=== PATIENT | female | born 1980 | race American Indian/Alaskan Native ===

== ENCOUNTER 2016-07-26 16:17 | Emergency (ER) | payer MEDICAID ==
[2016-07-26 16:38] VITALS: BP 135/82
[2016-07-26 17:03] LABS: Basophils % (Auto) 0.5 % (0.0-1.8); Eosinophils % (Auto) 0.2 % (0.0-4.3); Hematocrit 41.4 % (30.3-42.9); Hemoglobin 13.2 gm/dl (10.1-14.3); Mean Corpuscular HGB Conc 32 % (30-34); Mean Corpuscular Hemoglobin 30 pg (28-32); Mean Corpuscular Volume 95 fl (79-97); Platelet Count 135 K/mm3 (140-440); Red Blood Count 4.37 M/mm3 (3.65-5.03); Red Cell Distribution Width 14.4 % (13.2-15.2); White Blood Count 11.9 K/mm3 (4.5-11.0)
[2016-07-26 17:13] LABS: Bacteria,Urine 1+ /HPF (Negative); Bilirubin,Urine NEG (Negative); Blood,Urine LG (Negative); Ketones,Urine NEG (Negative); Leukocyte Esterase,Urine TR (Negative); Mucus,Urine FEW /HPF; Nitrite,Urine NEG (Negative); Protein,Urine <15 mg/dL mg/dL (Negative); Urobilinogen,Urine < 2.0 mg/dL (<2.0)
[2016-07-26 17:20] LABS: Alanine Aminotransferase 27 units/L (7-56); Albumin 3.8 g/dL (3.9-5); Albumin/Globulin Ratio 0.9 %; Alkaline Phosphatase 113 units/L (35-129); Anion Gap 20 mmol/L; Bilirubin,Total 0.6 mg/dL (0.1-1.2); Blood Urea Nitrogen 4 mg/dL (7-17); Calcium 8.6 mg/dL (8.4-10.2); Carbon Dioxide 23 mmol/L (22-30); Glucose 93 mg/dL (65-100); Lipase 24 units/L (13-60); Potassium 4.2 mmol/L (3.6-5.0); Sodium 131 mmol/L (137-145); Total Protein 8.2 g/dL (6.3-8.2)
--- NOTE | 2016-07-29 15:34 | ED Elopement Review ---
ED Pt Elopement review - Results review Lab results: Laboratory Tests 07/26/16 07/26/16 07/26/16 16:50 16:50 16:54 WBC 11.9 H RBC 4.37 Hgb 13.2 Hct 41.4 MCV 95 MCH 30 MCHC 32 RDW 14.4 Plt Count 135 L Lymph % (Auto) 11.4 L Gregg % (Auto) 8.6 H Eos % (Auto) 0.2 Baso % (Auto) 0.5 Lymph # 1.4 Gregg # 1.0 H Eos # 0.0 Baso # 0.1 Seg Neutrophils % 79.3 H Seg Neutrophils # 9.5 H Sodium 131 L Potassium 4.2 Chloride 92.0 L Carbon Dioxide 23 Anion Gap 20 BUN 4 L Creatinine 0.8 Estimated GFR > 60 BUN/Creatinine Ratio 5.00 Glucose 93 Calcium 8.6 Total Bilirubin 0.6 AST 38 ALT 27 Alkaline Phosphatase 113 Total Protein 8.2 Albumin 3.8 L Albumin/Globulin Ratio 0.9 Lipase 24 Urine Color Yellow Urine Turbidity Clear Urine pH 6.0 Ur Specific [place] 1.005 Urine Protein <15 mg/dl Urine Glucose (UA) Neg Urine Ketones Neg Urine Blood Lg Urine Nitrite Neg Urine Bilirubin Neg Urine Urobilinogen < 2.0 Ur Leukocyte Esterase Tr Urine WBC (Auto) 3.0 Urine RBC (Auto) 2.0 U Epithel Cells (Auto) 1.0 Urine Bacteria (Auto) 1+ Urine Mucus Few - Call Back decision Pt Call Back Decision: No action required
== END 2016-07-27 00:15 | disposition left against medical advice (07) ==
LOC: ED 16:17
DX: R51 Headache (principal); G43.909 Migraine, unspecified, not intractable, without status migrainosus; Z53.21 Procedure and treatment not carried out due to patient leaving prior to being seen by health care provider
CPT/HCPCS: 36415; 80053; 81001; 83690; 85025

== ENCOUNTER 2017-11-27 23:45 | Outpatient (CLI) | payer MEDICAID ==
[2017-11-27 23:58] VITALS: BP 105/59
[2017-11-28] MEDS ORDERED: LACTATED RINGERS 500 ML IV ONE (00:11)
[2017-11-28] MEDS ORDERED: LACTATED RINGERS 1,000 ML IV ONE (00:25)
[2017-11-28 00:50] LABS: Hematocrit 34.4 % (30.3-42.9); Hemoglobin 11.4 gm/dl (10.1-14.3); Mean Corpuscular HGB Conc 33 % (30-34); Mean Corpuscular Hemoglobin 31 pg (28-32); Mean Corpuscular Volume 94 fl (79-97); Platelet Count 142 K/mm3 (140-440); Red Blood Count 3.65 M/mm3 (3.65-5.03); Red Cell Distribution Width 14.1 % (13.2-15.2)
[2017-11-28 01:10] LABS: Alanine Aminotransferase 23 units/L (7-56); BUN/Creatinine Ratio 6; Blood Urea Nitrogen 3 mg/dL (7-17); Calcium 8.2 mg/dL (8.4-10.2); Hemolysis Index 14
[2017-11-28] MEDS ORDERED: STADOL IV ONE (01:15)
[2017-11-28] MEDS ORDERED: BRETHINE SUB-Q ONE (01:15)
== END 2017-11-28 04:03 | disposition home or self-care (01) ==
LOC: TRG 23:45 → LD 23:46 → TRG 11-28 04:03
PROVIDERS: ATTEND Obstetrics & Gynecology
DX: O62.9 Abnormality of forces of labor, unspecified (principal); O99.332 Smoking (tobacco) complicating pregnancy, second trimester; F17.210 Nicotine dependence, cigarettes, uncomplicated; Z3A.27 27 weeks gestation of pregnancy
CPT/HCPCS: 36415; 59025; 80053; 85027; 96360; 96372; 96374; J0595; J3105; J7120

== ENCOUNTER 2017-12-29 17:02 | Inpatient (IN) | payer MEDICAID ==
[2017-12-29] MEDS ORDERED: CELESTONE SOLUSPAN IM SCH (18:00)
[2017-12-29 19:22] LABS: Amphetamine Screen,Urine PRESUMPTIVE NEGATIVE; Benzodiazepines Screen,Urine PRESUMPTIVE NEGATIVE; Cannabinoid Screen,Urine PRESUMPTIVE NEGATIVE; Cocaine Screen,Urine PRESUMPTIVE NEGATIVE; Opiate Screen,Urine PRESUMPTIVE NEGATIVE
[2017-12-29 19:30] LABS: Hematocrit 33.8 % (30.3-42.9); Hemoglobin 11.3 gm/dl (10.1-14.3); Mean Corpuscular HGB Conc 34 % (30-34); Mean Corpuscular Hemoglobin 32 pg (28-32); Mean Corpuscular Volume 96 fl (79-97); Platelet Count 118 K/mm3 (140-440); Red Blood Count 3.51 M/mm3 (3.65-5.03); Red Cell Distribution Width 14.9 % (13.2-15.2)
[2017-12-29 19:49] LABS: Methadone Screen,Urine PRESUMPTIVE POSITIVE
--- NOTE | 2017-12-29 19:54 | Ultrasound Report ---
FINAL REPORT EXAM: US OB > = 14 WEEKS FETUS HISTORY: SEVER ABDOMINAL PAIN TECHNIQUE: Standard full obstetrical ultrasound PRIORS: None. FINDINGS: LMP: 05/18/2017 clinical Age: 32 W 1 D US Age (average) = 30 W 3 D EFW (BPD,HC,AC,FL) = 1499 g +/-222 g (3 lbs 5 oz. +/-8 oz.) LMP EDC 02/22/2018 US EDC 03/06/2018 CI 86.3 (Range 74 To 83) HC/AC 1.12 (range 0.96 to 1.17) FL/BPD 77.3 (range 71.4 to 87.4) FL/HC 21.6 (range 16.9 to 23.5) FL/AC 24.3 (range 20 to 24.0) BPD 7.7 cm corresponding to estimated age 31 weeks 1 day HC 27.8 cm corresponding to estimated age 30 weeks 3 days AC 24.8 cm corresponding to estimated age 29 weeks 0 days FL 6.0 cm corresponding to estimated age 31 weeks 2 days Presentation: Cephalic Activity: Monitored Placental location: Left lateral aspect Placental grade: 1 Cardiac motion: 129 BPM using M-mode doppler Heart (4 CH) : Present Umbilical cord: 3 vessel Heart (4 CH) : Present Umbilical cord: 3 vessel Bladder: Present Kidneys: Present stomach: Present Diaphragm: Not well seen Spine: Present brain and skull: Present with normal anatomy although the DOS cisterna magna and cerebellum are not optimally seen femurs: Present tibia/fibula: Present humerus: Present radius/ulna: Present Cord Insertion: Present Amniotic Fluid Volume: Adequate FRANCIS 8.1 cm Cervical Length: 2.8 cm IMPRESSION: Single intrauterine viable with an approximate age of 30 weeks 3 days. neuro anatomy is not optimally visualized.
[2017-12-29] MEDS ORDERED: PROTONIX IV SCH (22:03)
[2017-12-29] MEDS ORDERED: ZOFRAN IV ONE (22:03)
[2017-12-29] MEDS ORDERED: PROTONIX IV ONE (22:24)
[2017-12-29] MEDS ORDERED: LACTATED RINGERS 1,000 ML IV SCH (23:00)
[2017-12-29 23:15] LABS: Bacteria,Urine 1+ /HPF (Negative); Bilirubin,Urine NEG (Negative); Blood,Urine NEG (Negative); Color,Urine Yellow (Yellow); Mucus,Urine FEW /HPF; Protein,Urine <15 mg/dL mg/dL (Negative); WBC,Urine < 1.0 /HPF (0.0-6.0)
[2017-12-29 23:23] LABS: Amphetamine Screen,Urine PRESUMPTIVE NEGATIVE; Benzodiazepines Screen,Urine PRESUMPTIVE NEGATIVE; Cannabinoid Screen,Urine PRESUMPTIVE NEGATIVE; Cocaine Screen,Urine PRESUMPTIVE NEGATIVE; Opiate Screen,Urine PRESUMPTIVE NEGATIVE
--- NOTE | 2017-12-29 23:31 | History and Physical Report ---
History of Present Illness Date of examination: 12/29/17 Date of admission: 12/29/17 17:03 Chief complaint: LUQ pain History of present illness: This is a 37 year-old female (7 PTD) who presents with LUQ pain that started this am and became progressively worse. She has not received any care in here in [place], states she moved here from [facility] where she was given and KIRSTIN 02/25/2018( no records available). She had nausea and vomiting x1 this am also c/o post void suprapubic pain. On arrival by EMS she original complained of contractions and was found to be 3cm dilated. At that point she was given Celestone. During the course of evaluation her pain complaints. She has a history of drug use. She is receiving methadone treatment. She only took hald the dose this am d/t nausea/vomiting. Past History Past Medical History: asthma Past Surgical History: appendectomy, cholecystectomy, D&C Social history: prescription drug abuse - Obstetrical History Expected Date of Delivery: 03/06/18 Actual Gestation: 30 Week(s) 4 Day(s) : 14 Para: 10 Hx # Term Pregnancies: 3 Number of Pregnancies: 7 Spontaneous Abortions: 1 Number of Living Children: 10 Medications and Allergies Allergies Allergy/AdvReac Type Severity Reaction Status Date / Time shellfish derived Allergy Itching Verified 12/29/17 21:16 Home Medications Medication Instructions Recorded Confirmed Last Taken Type Doxycycline [Vibramycin CAP] 100 mg PO Q12HR #14 capsule 02/13/15 Unknown Rx Ibuprofen [Motrin] 800 mg PO Q8HR PRN #30 tablet 02/13/15 Unknown Rx Methadone [Dolophine] 80 mg PO DAILY 02/13/15 02/13/15 Unknown History Methylergonovine [Methergine] 0.2 mg PO Q8HR #6 tablet 02/13/15 Unknown Rx Active Meds: Active Medications Betamethasone Acet/Betameth SodPhos (Celestone Soluspan) 12 mg IM Q24HR ZEKE Stop: 12/30/17 10:01 Last Admin: 12/29/17 21:00 Dose: 12 mg Lactated Ringer's (Lactated Ringers) 1,000 mls @ 125 mls/hr IV DIRECT ZEKE Last Admin: 12/29/17 22:35 Dose: 125 mls/hr - Vital Signs Vital signs: Vital Signs Pulse BP 99 H 113/70 12/29/17 17:15 12/29/17 17:15 Temp Pulse Resp BP Pulse Ox 97.3 F L 83 18 133/76 97 12/29/17 19:50 12/29/17 23:25 12/29/17 19:50 12/29/17 22:05 12/29/17 23:25 - Physical Exam Breasts: Positive: deferred Lungs: Positive: Clear to auscultation, Normal air movement Abdomen: Positive: soft, other (She specifically placed my hand on her LUQ to indicate the place where she's having pain ). Negative: distention Extremities: Positive: normal Results Result Diagrams: 12/29/17 19:11 Abnormal lab results 12/29/17 Range/Units 19:11 RBC 3.51 L (3.65-5.03) M/mm3 Plt Count 118 L (140-440) K/mm3 All other labs normal. Ultrasound: report reviewed Assessment and Plan No evidence of chorioamnionitis. She is now sleeping in bed since she received Pantoprazole, Zofran and took her remaining dose of Methadone. She will continue observation - Patient Problems (1) 30 weeks gestation of Current Visit: Yes Status: Acute (2) LUQ abdominal pain Current Visit: Yes Status: Acute
[2017-12-29 23:37] LABS: Methadone Screen,Urine PRESUMPTIVE POSITIVE
--- NOTE | 2017-12-30 00:28 | Progress Note ---
Assessment and Plan - Patient Problems (1) 30 weeks gestation of Current Visit: Yes Status: Acute (2) LUQ abdominal pain Current Visit: Yes Status: Acute (3) Methadone maintenance treatment affecting in third trimester Current Visit: Yes Status: Acute (4) No care in current in third trimester Current Visit: Yes Status: Acute Subjective - Subjective Date of service: 12/30/17 Interval history: This is a 37 year-old female (7 PTD) who presents with LUQ pain that started this am and became progressively worse. She has not received any care in here in [place], [facility] she moved here from [facility] where she was given and KIRSTIN 02/25/2018( no records available). She had nausea and vomiting x1 this am also c/o post void suprapubic pain. On arrival by EMS she original complained of contractions and was found to be 3cm dilated. At that point she was given Celestone. During the course of evaluation her pain complaints. She has a history of drug use. She is receiving methadone treatment. She only took hald the dose this am d/t nausea/vomiting. Objective - Vital Signs Vital Signs: Vital Signs - 12hr 12/29/17 12/29/17 12/29/17 17:15 19:50 19:57 Temperature 97.3 F L Pulse Rate 99 H 86 101 H Respiratory 18 Rate Blood Pressure 113/70 Blood Pressure 120/74 [Right] O2 Sat by Pulse 98 Oximetry 12/29/17 12/29/17 12/29/17 20:02 20:06 20:07 Temperature Pulse Rate 87 101 H 95 H Respiratory Rate Blood Pressure Blood Pressure [Right] O2 Sat by Pulse 98 75 L 97 Oximetry 12/29/17 12/29/17 12/29/17 20:12 20:17 20:22 Temperature Pulse Rate 103 H 107 H 101 H Respiratory Rate Blood Pressure Blood Pressure [Right] O2 Sat by Pulse 96 98 99 Oximetry 12/29/17 12/29/17 12/29/17 20:27 20:32 20:37 Temperature Pulse Rate 80 86 87 Respiratory Rate Blood Pressure Blood Pressure [Right] O2 Sat by Pulse 97 96 97 Oximetry 12/29/17 12/29/17 12/29/17 20:42 20:44 20:47 Temperature Pulse Rate 88 98 H 71 Respiratory Rate Blood Pressure Blood Pressure [Right] O2 Sat by Pulse 96 93 98 Oximetry 12/29/17 12/29/17 12/29/17 20:52 20:57 20:58 Temperature Pulse Rate 91 H 90 90 Respiratory Rate Blood Pressure Blood Pressure [Right] O2 Sat by Pulse 98 99 94 Oximetry 12/29/17 12/29/17 12/29/17 21:05 21:10 21:15 Temperature Pulse Rate 94 H 84 116 H Respiratory Rate Blood Pressure Blood Pressure [Right] O2 Sat by Pulse 97 98 96 Oximetry 12/29/17 12/29/17 12/29/17 21:20 21:55 22:00 Temperature Pulse Rate 90 104 H 100 H Respiratory Rate Blood Pressure Blood Pressure [Right] O2 Sat by Pulse 98 99 96 Oximetry 12/29/17 12/29/17 12/29/17 22:05 22:10 22:15 Temperature Pulse Rate 103 H 104 H 114 H Respiratory Rate Blood Pressure 133/76 Blood Pressure [Right] O2 Sat by Pulse 100 98 98 Oximetry 12/29/17 12/29/17 12/29/17 22:20 22:25 22:30 Temperature Pulse Rate 99 H 91 H 95 H Respiratory Rate Blood Pressure Blood Pressure [Right] O2 Sat by Pulse 97 96 98 Oximetry 12/29/17 12/29/17 12/29/17 22:35 22:40 22:45 Temperature Pulse Rate 93 H 102 H 104 H Respiratory Rate Blood Pressure Blood Pressure [Right] O2 Sat by Pulse 98 99 96 Oximetry 12/29/17 12/29/17 12/29/17 22:46 22:50 22:55 Temperature Pulse Rate 91 H 78 84 Respiratory Rate Blood Pressure Blood Pressure [Right] O2 Sat by Pulse 88 96 96 Oximetry 12/29/17 12/29/17 12/29/17 23:00 23:05 23:10 Temperature Pulse Rate 84 80 84 Respiratory Rate Blood Pressure Blood Pressure [Right] O2 Sat by Pulse 96 96 96 Oximetry 12/29/17 12/29/17 12/29/17 23:15 23:17 23:20 Temperature Pulse Rate 84 46 L 78 Respiratory Rate Blood Pressure Blood Pressure [Right] O2 Sat by Pulse 97 81 L 98 Oximetry 12/29/17 12/29/17 12/29/17 23:25 23:30 23:35 Temperature Pulse Rate 83 74 88 Respiratory Rate Blood Pressure Blood Pressure [Right] O2 Sat by Pulse 97 96 97 Oximetry 12/29/17 12/29/17 12/29/17 23:40 23:45 23:50 Temperature Pulse Rate 82 84 80 Respiratory Rate Blood Pressure Blood Pressure [Right] O2 Sat by Pulse 97 96 96 Oximetry 12/29/17 12/30/17 12/30/17 23:55 00:00 00:05 Temperature Pulse Rate 75 87 84 Respiratory Rate Blood Pressure Blood Pressure [Right] O2 Sat by Pulse 96 97 97 Oximetry 12/30/17 12/30/17 12/30/17 00:06 00:10 00:15 Temperature Pulse Rate 78 88 83 Respiratory Rate Blood Pressure Blood Pressure [Right] O2 Sat by Pulse 79 L 98 95 Oximetry 12/30/17 12/30/17 12/30/17 00:20 00:25 00:30 Temperature Pulse Rate 85 89 81 Respiratory Rate Blood Pressure Blood Pressure [Right] O2 Sat by Pulse 96 95 95 Oximetry - Labs Labs: Abnormal Labs 12/29/17 19:11 RBC 3.51 L Plt Count 118 L Laboratory Results - last 24 hr 12/29/17 12/29/17 12/29/17 19:09 19:11 19:11 WBC 8.4 RBC 3.51 L Hgb 11.3 Hct 33.8 MCV 96 MCH 32 MCHC 34 RDW 14.9 Plt Count 118 L Sickle Cell Screen Negative Urine Color Urine Turbidity Urine pH Ur Specific [place] Urine Protein Urine Glucose (UA) Urine Ketones Urine Blood Urine Nitrite Urine Bilirubin Urine Urobilinogen Ur Leukocyte Esterase Urine WBC (Auto) Urine RBC (Auto) U Epithel Cells (Auto) Urine Bacteria (Auto) Urine Mucus Urine Opiates Screen Presumptive negative Urine Methadone Screen Presumptive positive Ur Barbiturates Screen Presumptive negative Ur Phencyclidine Scrn Presumptive negative Ur Amphetamines Screen Presumptive negative U Benzodiazepines Scrn Presumptive negative Urine Cocaine Screen Presumptive negative U Marijuana (THC) Screen Presumptive negative Drugs of Abuse Note Disclamer Hep Bs Antigen Hepatitis C Antibody HIV 1&2 Antibody Rapid Non react HIV P24 Antigen Non react Rubella IgG Antibody Immune 12/29/17 12/29/17 12/29/17 19:16 19:16 22:40 WBC RBC Hgb Hct MCV MCH MCHC RDW Plt Count Sickle Cell Screen Urine Color Urine Turbidity Urine pH Ur Specific [place] Urine Protein Urine Glucose (UA) Urine Ketones Urine Blood Urine Nitrite Urine Bilirubin Urine Urobilinogen Ur Leukocyte Esterase Urine WBC (Auto) Urine RBC (Auto) U Epithel Cells (Auto) Urine Bacteria (Auto) Urine Mucus Urine Opiates Screen Presumptive negative Urine Methadone Screen Presumptive positive Ur Barbiturates Screen Presumptive negative Ur Phencyclidine Scrn Presumptive negative Ur Amphetamines Screen Presumptive negative U Benzodiazepines Scrn Presumptive negative Urine Cocaine Screen Presumptive negative U Marijuana (THC) Screen Presumptive negative Drugs of Abuse Note Disclamer Hep Bs Antigen Non-reactive Hepatitis C Antibody Non-reactive HIV 1&2 Antibody Rapid HIV P24 Antigen Rubella IgG Antibody 12/29/17 22:40 WBC RBC Hgb Hct MCV MCH MCHC RDW Plt Count Sickle Cell Screen Urine Color Yellow Urine Turbidity Clear Urine pH 5.0 Ur Specific [place] 1.009 Urine Protein <15 mg/dl Urine Glucose (UA) Neg Urine Ketones 20 Urine Blood Neg Urine Nitrite Neg Urine Bilirubin Neg Urine Urobilinogen 4.0 Ur Leukocyte Esterase Neg Urine WBC (Auto) < 1.0 Urine RBC (Auto) 1.0 U Epithel Cells (Auto) 1.0 Urine Bacteria (Auto) 1+ Urine Mucus Few Urine Opiates Screen Urine Methadone Screen Ur Barbiturates Screen Ur Phencyclidine Scrn Ur Amphetamines Screen U Benzodiazepines Scrn Urine Cocaine Screen U Marijuana (THC) Screen Drugs of Abuse Note Hep Bs Antigen Hepatitis C Antibody HIV 1&2 Antibody Rapid HIV P24 Antigen Rubella IgG Antibody
[2017-12-30 04:13] VITALS: BP 122/69
[2017-12-30] MEDS ORDERED: PEPCID IV SCH (04:15)
--- NOTE | 2017-12-30 06:10 | Progress Note ---
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 She now gives a history of anxiety, will get a surgery consult. Patient reports: movement normal, no new complaints, no loss of fluid, no vaginal bleeding, no contractions Objective - Vital Signs Vital Signs: Vital Signs - 12hr 12/29/17 12/29/17 12/29/17 19:50 19:57 20:02 Temperature 97.3 F L Pulse Rate 86 101 H 87 Respiratory 18 Rate Blood Pressure Blood Pressure 120/74 [Right] O2 Sat by Pulse 98 98 Oximetry 12/29/17 12/29/17 12/29/17 20:06 20:07 20:12 Temperature Pulse Rate 101 H 95 H 103 H Respiratory Rate Blood Pressure Blood Pressure [Right] O2 Sat by Pulse 75 L 97 96 Oximetry 12/29/17 12/29/17 12/29/17 20:17 20:22 20:27 Temperature Pulse Rate 107 H 101 H 80 Respiratory Rate Blood Pressure Blood Pressure [Right] O2 Sat by Pulse 98 99 97 Oximetry 12/29/17 12/29/17 12/29/17 20:32 20:37 20:42 Temperature Pulse Rate 86 87 88 Respiratory Rate Blood Pressure Blood Pressure [Right] O2 Sat by Pulse 96 97 96 Oximetry 12/29/17 12/29/17 12/29/17 20:44 20:47 20:52 Temperature Pulse Rate 98 H 71 91 H Respiratory Rate Blood Pressure Blood Pressure [Right] O2 Sat by Pulse 93 98 98 Oximetry 12/29/17 12/29/17 12/29/17 20:57 20:58 21:05 Temperature Pulse Rate 90 90 94 H Respiratory Rate Blood Pressure Blood Pressure [Right] O2 Sat by Pulse 99 94 97 Oximetry 12/29/17 12/29/17 12/29/17 21:10 21:15 21:20 Temperature Pulse Rate 84 116 H 90 Respiratory Rate Blood Pressure Blood Pressure [Right] O2 Sat by Pulse 98 96 98 Oximetry 12/29/17 12/29/17 12/29/17 21:55 22:00 22:05 Temperature Pulse Rate 104 H 100 H 103 H Respiratory Rate Blood Pressure 133/76 Blood Pressure [Right] O2 Sat by Pulse 99 96 100 Oximetry 12/29/17 12/29/17 12/29/17 22:10 22:15 22:20 Temperature Pulse Rate 104 H 114 H 99 H Respiratory Rate Blood Pressure Blood Pressure [Right] O2 Sat by Pulse 98 98 97 Oximetry 12/29/17 12/29/17 12/29/17 22:25 22:30 22:35 Temperature Pulse Rate 91 H 95 H 93 H Respiratory Rate Blood Pressure Blood Pressure [Right] O2 Sat by Pulse 96 98 98 Oximetry 12/29/17 12/29/17 12/29/17 22:40 22:45 22:46 Temperature Pulse Rate 102 H 104 H 91 H Respiratory Rate Blood Pressure Blood Pressure [Right] O2 Sat by Pulse 99 96 88 Oximetry 12/29/17 12/29/17 12/29/17 22:50 22:55 23:00 Temperature Pulse Rate 78 84 84 Respiratory Rate Blood Pressure Blood Pressure [Right] O2 Sat by Pulse 96 96 96 Oximetry 12/29/17 12/29/17 12/29/17 23:05 23:10 23:15 Temperature Pulse Rate 80 84 84 Respiratory Rate Blood Pressure Blood Pressure [Right] O2 Sat by Pulse 96 96 97 Oximetry 12/29/17 12/29/17 12/29/17 23:17 23:20 23:25 Temperature Pulse Rate 46 L 78 83 Respiratory Rate Blood Pressure Blood Pressure [Right] O2 Sat by Pulse 81 L 98 97 Oximetry 12/29/17 12/29/17 12/29/17 23:30 23:35 23:40 Temperature Pulse Rate 74 88 82 Respiratory Rate Blood Pressure Blood Pressure [Right] O2 Sat by Pulse 96 97 97 Oximetry 12/29/17 12/29/17 12/29/17 23:45 23:50 23:55 Temperature Pulse Rate 84 80 75 Respiratory Rate Blood Pressure Blood Pressure [Right] O2 Sat by Pulse 96 96 96 Oximetry 12/30/17 12/30/17 12/30/17 00:00 00:05 00:06 Temperature Pulse Rate 87 84 78 Respiratory Rate Blood Pressure Blood Pressure [Right] O2 Sat by Pulse 97 97 79 L Oximetry 12/30/17 12/30/17 12/30/17 00:10 00:15 00:20 Temperature Pulse Rate 88 83 85 Respiratory Rate Blood Pressure Blood Pressure [Right] O2 Sat by Pulse 98 95 96 Oximetry 12/30/17 12/30/17 12/30/17 00:25 00:30 00:35 Temperature Pulse Rate 89 81 87 Respiratory Rate Blood Pressure Blood Pressure [Right] O2 Sat by Pulse 95 95 95 Oximetry 12/30/17 12/30/17 12/30/17 00:40 00:42 00:45 Temperature Pulse Rate 95 H 78 95 H Respiratory Rate Blood Pressure Blood Pressure [Right] O2 Sat by Pulse 96 93 94 Oximetry 12/30/17 12/30/17 12/30/17 00:50 00:51 00:55 Temperature Pulse Rate 77 83 93 H Respiratory Rate Blood Pressure Blood Pressure [Right] O2 Sat by Pulse 94 94 95 Oximetry 12/30/17 12/30/17 12/30/17 00:56 00:58 01:00 Temperature 96.7 F L Pulse Rate 99 H 93 H 83 Respiratory 16 Rate Blood Pressure Blood Pressure 110/70 [Right] O2 Sat by Pulse 94 96 Oximetry 12/30/17 12/30/17 12/30/17 01:03 01:04 01:05 Temperature Pulse Rate 87 92 H 82 Respiratory Rate Blood Pressure 110/70 Blood Pressure [Right] O2 Sat by Pulse 94 95 Oximetry 12/30/17 12/30/17 12/30/17 01:10 01:15 01:16 Temperature Pulse Rate 93 H 87 91 H Respiratory Rate Blood Pressure Blood Pressure [Right] O2 Sat by Pulse 95 95 94 Oximetry 12/30/17 12/30/17 12/30/17 01:20 01:25 01:27 Temperature Pulse Rate 84 86 85 Respiratory Rate Blood Pressure Blood Pressure [Right] O2 Sat by Pulse 93 95 94 Oximetry 12/30/17 12/30/17 12/30/17 01:30 01:32 01:35 Temperature Pulse Rate 84 85 90 Respiratory Rate Blood Pressure Blood Pressure [Right] O2 Sat by Pulse 94 94 94 Oximetry 12/30/17 12/30/17 12/30/17 01:38 01:40 01:43 Temperature Pulse Rate 92 H 87 94 H Respiratory Rate Blood Pressure Blood Pressure [Right] O2 Sat by Pulse 94 94 94 Oximetry 12/30/17 12/30/17 12/30/17 01:45 01:49 01:50 Temperature Pulse Rate 89 87 105 H Respiratory Rate Blood Pressure Blood Pressure [Right] O2 Sat by Pulse 94 94 95 Oximetry 12/30/17 12/30/17 12/30/17 01:55 02:00 02:05 Temperature Pulse Rate 64 87 77 Respiratory Rate Blood Pressure Blood Pressure [Right] O2 Sat by Pulse 97 95 95 Oximetry 12/30/17 12/30/17 12/30/17 02:08 02:10 02:15 Temperature Pulse Rate 80 80 85 Respiratory Rate Blood Pressure Blood Pressure [Right] O2 Sat by Pulse 94 95 95 Oximetry 12/30/17 12/30/17 12/30/17 02:17 02:20 02:22 Temperature Pulse Rate 90 85 85 Respiratory Rate Blood Pressure Blood Pressure [Right] O2 Sat by Pulse 94 95 94 Oximetry 12/30/17 12/30/17 12/30/17 02:25 02:29 02:30 Temperature Pulse Rate 81 81 89 Respiratory Rate Blood Pressure Blood Pressure [Right] O2 Sat by Pulse 97 94 95 Oximetry 12/30/17 12/30/17 12/30/17 02:34 02:35 02:39 Temperature Pulse Rate 84 81 87 Respiratory Rate Blood Pressure Blood Pressure [Right] O2 Sat by Pulse 94 95 94 Oximetry 12/30/17 12/30/17 12/30/17 02:40 02:45 02:46 Temperature Pulse Rate 88 91 H 105 H Respiratory Rate Blood Pressure Blood Pressure [Right] O2 Sat by Pulse 94 95 93 Oximetry 12/30/17 12/30/17 12/30/17 02:50 02:54 02:55 Temperature Pulse Rate 78 81 88 Respiratory Rate Blood Pressure Blood Pressure [Right] O2 Sat by Pulse 93 94 93 Oximetry 12/30/17 12/30/17 12/30/17 03:00 03:05 03:06 Temperature Pulse Rate 86 95 H 91 H Respiratory Rate Blood Pressure Blood Pressure [Right] O2 Sat by Pulse 93 95 94 Oximetry 12/30/17 12/30/17 12/30/17 03:10 03:11 03:15 Temperature Pulse Rate 83 80 81 Respiratory Rate Blood Pressure Blood Pressure [Right] O2 Sat by Pulse 94 94 95 Oximetry 12/30/17 12/30/17 12/30/17 03:17 03:20 03:25 Temperature Pulse Rate 85 88 88 Respiratory Rate Blood Pressure Blood Pressure [Right] O2 Sat by Pulse 94 95 94 Oximetry 12/30/17 12/30/17 12/30/17 03:30 03:34 03:35 Temperature Pulse Rate 83 94 H 96 H Respiratory Rate Blood Pressure Blood Pressure [Right] O2 Sat by Pulse 96 94 95 Oximetry 12/30/17 12/30/17 12/30/17 03:40 03:45 03:50 Temperature Pulse Rate 94 H 79 72 Respiratory Rate Blood Pressure Blood Pressure [Right] O2 Sat by Pulse 96 98 100 Oximetry 12/30/17 12/30/17 12/30/17 03:55 04:00 04:01 Temperature Pulse Rate 83 95 H 95 H Respiratory Rate Blood Pressure Blood Pressure [Right] O2 Sat by Pulse 98 95 93 Oximetry 12/30/17 12/30/17 12/30/17 04:06 04:11 04:16 Temperature 96.6 F L Pulse Rate 88 81 89 Respiratory 18 Rate Blood Pressure Blood Pressure 122/69 [Right] O2 Sat by Pulse 95 95 97 Oximetry 12/30/17 12/30/17 12/30/17 04:17 04:21 04:26 Temperature Pulse Rate 84 92 H 97 H Respiratory Rate Blood Pressure 122/69 Blood Pressure [Right] O2 Sat by Pulse 97 98 Oximetry 12/30/17 12/30/17 12/30/17 04:31 04:36 04:41 Temperature Pulse Rate 111 H 83 88 Respiratory Rate Blood Pressure Blood Pressure [Right] O2 Sat by Pulse 97 95 96 Oximetry 12/30/17 12/30/17 12/30/17 04:46 04:50 04:51 Temperature Pulse Rate 85 88 84 Respiratory Rate Blood Pressure Blood Pressure [Right] O2 Sat by Pulse 95 94 95 Oximetry 12/30/17 12/30/17 12/30/17 04:56 04:57 05:01 Temperature Pulse Rate 86 78 82 Respiratory Rate Blood Pressure Blood Pressure [Right] O2 Sat by Pulse 95 94 96 Oximetry 12/30/17 12/30/17 12/30/17 05:06 05:11 05:16 Temperature Pulse Rate 90 78 81 Respiratory Rate Blood Pressure Blood Pressure [Right] O2 Sat by Pulse 99 100 95 Oximetry 12/30/17 12/30/17 12/30/17 05:18 05:21 05:26 Temperature Pulse Rate 78 90 84 Respiratory Rate Blood Pressure Blood Pressure [Right] O2 Sat by Pulse 94 94 94 Oximetry 12/30/17 12/30/17 12/30/17 05:29 05:31 05:36 Temperature Pulse Rate 89 88 98 H Respiratory Rate Blood Pressure Blood Pressure [Right] O2 Sat by Pulse 94 94 95 Oximetry 12/30/17 12/30/17 12/30/17 05:41 05:42 05:47 Temperature Pulse Rate 104 H 72 78 Respiratory Rate Blood Pressure Blood Pressure [Right] O2 Sat by Pulse 55 L 96 98 Oximetry 12/30/17 12/30/17 12/30/17 05:52 05:57 06:02 Temperature Pulse Rate 77 85 79 Respiratory Rate Blood Pressure Blood Pressure [Right] O2 Sat by Pulse 96 96 95 Oximetry 12/30/17 06:07 Temperature Pulse Rate 80 Respiratory Rate Blood Pressure Blood Pressure [Right] O2 Sat by Pulse 99 Oximetry - Exam Breasts: deferred Abdomen: Present: normal appearance, soft, normal bowel sounds Uterus: Absent: tenderness FHR: category 1 - Labs Labs: Abnormal Labs 12/29/17 19:11 RBC 3.51 L Plt Count 118 L Laboratory Results - last 24 hr 12/29/17 12/29/17 12/29/17 19:09 19:11 19:11 WBC 8.4 RBC 3.51 L Hgb 11.3 Hct 33.8 MCV 96 MCH 32 MCHC 34 RDW 14.9 Plt Count 118 L Sickle Cell Screen Negative Urine Color Urine Turbidity Urine pH Ur Specific [place] Urine Protein Urine Glucose (UA) Urine Ketones Urine Blood Urine Nitrite Urine Bilirubin Urine Urobilinogen Ur Leukocyte Esterase Urine WBC (Auto) Urine RBC (Auto) U Epithel Cells (Auto) Urine Bacteria (Auto) Urine Mucus Urine Opiates Screen Presumptive negative Urine Methadone Screen Presumptive positive Ur Barbiturates Screen Presumptive negative Ur Phencyclidine Scrn Presumptive negative Ur Amphetamines Screen Presumptive negative U Benzodiazepines Scrn Presumptive negative Urine Cocaine Screen Presumptive negative U Marijuana (THC) Screen Presumptive negative Drugs of Abuse Note Disclamer Hep Bs Antigen Hepatitis C Antibody HIV 1&2 Antibody Rapid Non react HIV P24 Antigen Non react Rubella IgG Antibody Immune 12/29/17 12/29/17 12/29/17 19:16 19:16 22:40 WBC RBC Hgb Hct MCV MCH MCHC RDW Plt Count Sickle Cell Screen Urine Color Urine Turbidity Urine pH Ur Specific [place] Urine Protein Urine Glucose (UA) Urine Ketones Urine Blood Urine Nitrite Urine Bilirubin Urine Urobilinogen Ur Leukocyte Esterase Urine WBC (Auto) Urine RBC (Auto) U Epithel Cells (Auto) Urine Bacteria (Auto) Urine Mucus Urine Opiates Screen Presumptive negative Urine Methadone Screen Presumptive positive Ur Barbiturates Screen Presumptive negative Ur Phencyclidine Scrn Presumptive negative Ur Amphetamines Screen Presumptive negative U Benzodiazepines Scrn Presumptive negative Urine Cocaine Screen Presumptive negative U Marijuana (THC) Screen Presumptive negative Drugs of Abuse Note Disclamer Hep Bs Antigen Non-reactive Hepatitis C Antibody Non-reactive HIV 1&2 Antibody Rapid HIV P24 Antigen Rubella IgG Antibody 12/29/17 22:40 WBC RBC Hgb Hct MCV MCH MCHC RDW Plt Count Sickle Cell Screen Urine Color Yellow Urine Turbidity Clear Urine pH 5.0 Ur Specific [place] 1.009 Urine Protein <15 mg/dl Urine Glucose (UA) Neg Urine Ketones 20 Urine Blood Neg Urine Nitrite Neg Urine Bilirubin Neg Urine Urobilinogen 4.0 Ur Leukocyte Esterase Neg Urine WBC (Auto) < 1.0 Urine RBC (Auto) 1.0 U Epithel Cells (Auto) 1.0 Urine Bacteria (Auto) 1+ Urine Mucus Few Urine Opiates Screen Urine Methadone Screen Ur Barbiturates Screen Ur Phencyclidine Scrn Ur Amphetamines Screen U Benzodiazepines Scrn Urine Cocaine Screen U Marijuana (THC) Screen Drugs of Abuse Note Hep Bs Antigen Hepatitis C Antibody HIV 1&2 Antibody Rapid HIV P24 Antigen Rubella IgG Antibody
--- NOTE | 2017-12-30 06:16 | Event Note ---
Date: 12/30/17 Patient now states she feels better and wants to go home to get her Methadone, will allow home after BPP completed
--- NOTE | 2017-12-30 07:20 | Ultrasound Report ---
FINAL REPORT EXAM: US OB BPP WO NON-STRESS HISTORY: Methadone usage COMPARISONS: 12/29/2017 FINDINGS: Limited grayscale and M-mode third trimester obstetric ultrasound for biophysical profile Single living intrauterine with recorded cardiac activity of 102 beats per minute. Amniotic fluid volume is subjectively normal. Demonstrated maximum vertical pocket is 3 cm in depth. Biophysical profile score is 8/8. IMPRESSION: Single living intrauterine with biophysical profile score of 8/8.
--- NOTE | 2017-12-31 10:06 | Discharge Summary ---
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 Status: Acute (4) No care in current in third trimester Status: Acute (5) Anxiety Status: Acute Core Measure Documentation - Palliative Care Palliative Care/ Comfort Measures: Not Applicable - Core Measures Any of the following diagnoses?: none Exam - Constitutional Vitals: Temp Pulse Resp BP Pulse Ox 96.6 F L 54 L 18 122/69 74 L 12/30/17 04:11 12/30/17 06:18 12/30/17 04:11 12/30/17 04:17 12/30/17 06:18 General appearance: Present: no acute distress Plan Activity: no restrictions Weight Bearing Status: Full Weight Bearing Diet: regular Follow up with: EMILY PONCE MD [Primary Care Provider] - 7 Days
== END 2017-12-30 06:59 | disposition home or self-care (01) | DRG 781 ==
LOC: TRG 17:02 → LD 17:03 → TRG 17:03
PROVIDERS: ADMIT Obstetrics & Gynecology; ATTEND Obstetrics & Gynecology
DX: O26.893 Other specified pregnancy related conditions, third trimester (principal); O99.513 Diseases of the respiratory system complicating pregnancy, third trimester; J45.909 Unspecified asthma, uncomplicated; O99.343 Other mental disorders complicating pregnancy, third trimester; F41.9 Anxiety disorder, unspecified; O99.323 Drug use complicating pregnancy, third trimester; F19.90 Other psychoactive substance use, unspecified, uncomplicated; Z91.013 Allergy to seafood; Z3A.30 30 weeks gestation of pregnancy; Z90.49 Acquired absence of other specified parts of digestive tract; R10.12 Left upper quadrant pain
CPT/HCPCS: 36415; 76805; 76819; 80307; 81001; 85027; 85660; 86592; 86706; 86762; 86803; 87806; C9113; J0702; J2405; J7120

== ENCOUNTER 2018-01-02 06:55 | Inpatient (IN) | payer MEDICAID ==
[2018-01-02] MEDS ORDERED: PITOCin/NS 20 UNIT/1000ML DRIP 20,000 MILLIUNITS/1,000 ML BAG IV ONE (07:59)
[2018-01-02] MEDS ORDERED: LACTATED RINGERS 1,000 ML ONE (07:59)
[2018-01-02] MEDS ORDERED: SUBLIMAZE ONE (08:07)
[2018-01-02] MEDS ORDERED: POLYCILLIN/NS 2 GM/100 ML 2 GM/100 ML BAG IV ONE ×2 (08:07→08:10)
[2018-01-02] MEDS ORDERED: XYLOCAINE 2% INFILTRATI NR (08:10)
[2018-01-02] MEDS ORDERED: BRETHINE SUB-Q PRN (08:10)
[2018-01-02] MEDS ORDERED: BRETHINE IVP PRN (08:10)
[2018-01-02] MEDS ORDERED: ZOFRAN IV PRN ×2 (08:10→08:59)
[2018-01-02] MEDS ORDERED: ePHEDrine SULFATE IV PRN (08:10)
[2018-01-02] MEDS ORDERED: SUBLIMAZE IV PRN (08:10)
[2018-01-02] MEDS ORDERED: STADOL IV PRN (08:10)
--- NOTE | 2018-01-02 08:14 | History and Physical Report ---
History of Present Illness Date of examination: 01/02/18 Date of admission: 01/02/18 06:56 Chief complaint: PPROM; PTL History of present illness: Pt is a 37yo BF (7 PTD) who represents to [facility] L&D complaining of SROM clear fluid @ 0600 followed by contractions which started this am and became progressively worse. She has not received any care in here in [place], [facility] she moved here from [facility] where she was given and KIRSTIN 02/25/2018 ( no records available), EGA 32 2/7 weeks. On arrival by EMS she was found to be 8cm dilated. She received [place] during a previous admission 4 days ago. She has a history of drug use, and is receiving methadone treatment. Past History Past Medical History: asthma Past Surgical History: appendectomy, cholecystectomy, D&C Social history: no significant social history, single - Obstetrical History Expected Date of Delivery: 02/25/18 Actual Gestation: 32 Week(s) 2 Day(s) : 14 Medications and Allergies Allergies Allergy/AdvReac Type Severity Reaction Status Date / Time iodine Allergy Rash Verified 01/02/18 07:38 shellfish derived Allergy Itching Verified 12/29/17 21:16 Home Medications Medication Instructions Recorded Confirmed Last Taken Type Albuterol Sulfate [Proventil Hfa] 2 puff INHALATION PRN 01/02/18 01/02/18 05: 00 History 1 Famotidine [Pepcid] 20 mg PO BID 01/02/18 01/02/18 Unknown History Vit-Fe Fumar-FA [ 1 tab PO QDAY 01/02/18 01/02/18 01/02/18 05: 00 History Vitamin] 1 Simethicone [Bicarsim Forte] 125 mg PO PRN 01/02/18 01/02/18 01/02/18 05:00 History 1 Review of Systems All systems: negative - Vital Signs Vital signs: Vital Signs Pulse BP 97 H 113/70 01/02/18 07:30 01/02/18 07:30 Temp Pulse Resp BP Pulse Ox 103 H 114/73 99 01/02/18 08:03 01/02/18 08:03 01/02/18 07:48 - Physical Exam Breasts: Positive: deferred Cardiovascular: Regular rate Lungs: Positive: Clear to auscultation Abdomen: Positive: normal appearance Genitourinary (Female): Positive: normal external genitalia Vagina: Positive: normal moisture Uterus: Positive: enlarged Extremities: Positive: normal - Obstetrical FHR: category 1 Uterine Contraction Monitor Mode: External Cervical Dilatation: 10 Cervical Effacement Percentage: 100 station: 0 Uterine Contraction Pattern: Regular Uterine Tone Measurement Phase: Contraction Uterine Contraction Intensity: Strong/Firm Results All other labs normal. Ultrasound: report reviewed Assessment and Plan - Patient Problems (1) 30 weeks gestation of Onset Date: 01/02/18 Current Visit: No Status: Acute Plan to address problem: A: IUP @ 32 5/7 weeks in labor PPROM PTL No care Methadone use P: Admit to L&D for expectant vaginal delivery NICU notified (2) PROM with onset of labor within 24 hours of rupture Onset Date: 01/02/18 Current Visit: Yes Status: Acute Qualifiers: PROM gestational age: -third trimester Qualified Code(s): O42.013 - premature rupture of membranes, onset of labor within 24 hours of rupture, third trimester (3) No care in current in third trimester Onset Date: 01/02/18 Current Visit: No Status: Acute (4) 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
[2018-01-02] MEDS ORDERED: METHERGINE IM ONE (08:30)
--- NOTE | 2018-01-02 08:53 | Procedure Note ---
OB Delivery Note - Delivery Date of Delivery: 01/02/18 Surgeon: MORRIS CARO Estimated blood loss: <100cc - Vaginal Delivery presentation: vertex Delivery position: OA Intrapartum events: no care, labor-<37 weeks, PROM->1hr before delivery, precipitous labor- <3hr Delivery induction: none Delivery augmentation: rupture of membranes Delivery monitor: external FHT, external uterine Route of delivery: Delivery placenta: spontaneous Delivery cord: nuchal cord, 3 umbilical vessels Episiotomy: none Delivery laceration: none Anesthesia: none Delivery comments: delivered OA and handed to awaiting Peds/RT - Infant A at 1 minute: 8 at 5 minutes: 9 Gender: Male (1547gms)
[2018-01-02] MEDS ORDERED: BENADRYL PO PRN (08:59)
[2018-01-02] MEDS ORDERED: TUCKS PAD TP PRN (08:59)
[2018-01-02] MEDS ORDERED: PHENERGAN PO PRN (08:59)
[2018-01-02] MEDS ORDERED: PHENERGAN PR PRN (08:59)
[2018-01-02] MEDS ORDERED: TYLENOL PO PRN (08:59)
[2018-01-02] MEDS ORDERED: LANSINOH TP PRN (08:59)
[2018-01-02] MEDS ORDERED: PITOCin/NS 20 UNIT/1000ML DRIP 20 UNITS/1,000 ML BAG IV SCH ×2 (09:00)
[2018-01-02] MEDS ORDERED: SENOKOT S PO SCH (09:00)
[2018-01-02] MEDS ORDERED: MOTRIN PO ONE (09:00)
[2018-01-02] MEDS ORDERED: SODIUM CHLORIDE FLUSH SYRINGE 10 ML IV NR (09:00)
[2018-01-02] MEDS ORDERED: LACTATED RINGERS 1,000 ML IV SCH (09:00)
[2018-01-02] MEDS ORDERED: PITOCin/NS 30 UNIT/500ML 30 UNITS/500 ML BAG IV SCH (09:00)
[2018-01-02] MEDS ORDERED: MOTRIN ONE (09:05)
[2018-01-02 09:30] LABS: Hematocrit 34.2 % (30.3-42.9); Hemoglobin 11.2 gm/dl (10.1-14.3); Mean Corpuscular HGB Conc 33 % (30-34); Mean Corpuscular Hemoglobin 32 pg (28-32); Mean Corpuscular Volume 97 fl (79-97); Platelet Count 121 K/mm3 (140-440); Red Blood Count 3.53 M/mm3 (3.65-5.03); Red Cell Distribution Width 14.3 % (13.2-15.2)
[2018-01-02] MEDS ORDERED: DULCOLAX PR PRN (10:00)
[2018-01-02 10:01] LABS: Amphetamine Screen,Urine PRESUMPTIVE NEGATIVE; Benzodiazepines Screen,Urine PRESUMPTIVE NEGATIVE; Cannabinoid Screen,Urine PRESUMPTIVE NEGATIVE; Cocaine Screen,Urine PRESUMPTIVE NEGATIVE; Opiate Screen,Urine PRESUMPTIVE NEGATIVE
[2018-01-02 10:18] LABS: Methadone Screen,Urine PRESUMPTIVE POSITIVE
[2018-01-02] MEDS: MOTRIN PO SCH ×2 (10:42→15:59)
[2018-01-02] MEDS: FEOSOL PO SCH ×2 (11:45→22:24)
[2018-01-02] MEDS: PRENATAL VITAMIN PO SCH (11:46)
[2018-01-02] MEDS: COLACE PO SCH ×2 (11:46→22:24)
[2018-01-02] MEDS ORDERED: AMPICILLIN/NS 1 GM/50 ML 1 GM/50 ML BAG IV SCH (12:12)
[2018-01-02] MEDS ORDERED: DERMOPLAST TP PRN (13:02)
[2018-01-02] MEDS: PHENERGAN PO PRN ×2 (13:12→22:31)
[2018-01-02 21:09] LABS: Hematocrit 28.3 % (30.3-42.9); Hemoglobin 9.1 gm/dl (10.1-14.3)
[2018-01-02] MEDS ORDERED: MILK OF MAGNESIA PO PRN (22:00)
[2018-01-02] MEDS ORDERED: MINERAL OIL PO PRN (22:00)
[2018-01-02] MEDS ORDERED: MOTRIN PO PRN (22:06)
[2018-01-02] MEDS ORDERED: TORADOL IV PRN (22:08)
--- NOTE | 2018-01-03 08:26 | Progress Note ---
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 Subjective - Subjective Date of service: 01/03/18 Principal diagnosis: s/p - PPD #1 Interval history: Pt is feeling well without complaints. Bleeding improved. Wants to go home. Patient reports: appetite normal, voiding normally, pain well controlled, flatus , ambulating normally, no dizzy ambulation, no nauseated [place]: doing well, in NICU Objective - Vital Signs Latest vital signs: Vital Signs Temp Pulse Resp BP BP Pulse Ox 01/03/18 01:44 98.3 F 76 18 115/65 01/02/18 21:50 98.6 F 84 18 120/54 01/02/18 10:42 98.1 F 72 18 110/72 97 01/02/18 10:20 75 115/75 01/02/18 10:05 72 111/73 01/02/18 09:50 70 109/82 01/02/18 09:47 69 118/60 01/02/18 09:33 73 105/62 01/02/18 09:16 102 H 147/83 01/02/18 09:05 90 136/90 01/02/18 08:56 78 124/78 01/02/18 08:35 113 H 118/61 Intake and Output 01/02/18 01/03/18 01/03/18 22:59 06:59 14:59 Intake Total 600 Output Total 200 Balance -200 600 Intake: Intake, Free Water 600 Output: Urine 200 Void 200 Other: Total, Output Amount 200 # Voids Void 2 - Exam Breasts: Present: deferred Cardiovascular: Present: Regular rate Lungs: Present: Clear to auscultation Abdomen: Present: normal appearance, soft Uterus: Present: normal, firm, fundal height below umbilicus Extremities: Present: normal - Labs Labs: Abnormal lab results 01/02/18 01/02/18 Range/Units 08:50 20:45 RBC 3.53 L (3.65-5.03) M/mm3 Hgb 9.1 L (10.1-14.3) gm/dl Hct 28.3 L (30.3-42.9) % Plt Count 121 L (140-440) K/mm3 Laboratory Tests 01/02/18 01/02/18 01/02/18 08:50 08:50 20:45 WBC 8.1 RBC 3.53 L Hgb 11.2 9.1 L Hct 34.2 28.3 L MCV 97 MCH 32 MCHC 33 RDW 14.3 Plt Count 121 L Urine Opiates Screen Urine Methadone Screen Ur Barbiturates Screen Ur Phencyclidine Scrn Ur Amphetamines Screen U Benzodiazepines Scrn Urine Cocaine Screen U Marijuana (THC) Screen Drugs of Abuse Note Blood Type B POSITIVE Antibody Screen Negative 01/02/18 Unknown WBC RBC Hgb Hct MCV MCH MCHC RDW Plt Count Urine Opiates Screen Presumptive negative Urine Methadone Screen Presumptive positive Ur Barbiturates Screen Presumptive negative Ur Phencyclidine Scrn Presumptive negative Ur Amphetamines Screen Presumptive negative U Benzodiazepines Scrn Presumptive negative Urine Cocaine Screen Presumptive negative U Marijuana (THC) Screen Presumptive negative Drugs of Abuse Note Disclamer Blood Type Antibody Screen
[2018-01-03] MEDS ORDERED: BOOSTRIX IM ONE (09:00)
[2018-01-03] MEDS ORDERED: M-M-R II VACCINE SUB-Q ONE (09:00)
--- NOTE | 2018-01-03 09:08 | Discharge Summary ---
Providers - Providers Date of Admission: 01/02/18 06:56 Date of discharge: 01/03/18 Attending physician: MORRIS CARO Primary care physician: MORRIS CARO Hospitalization Reason for admission: active labor, IUP - , labor, rupture of membranes Delivery: Episiotomy: none Laceration: none Other procedures: none complications: none Discharge diagnosis: delivery [place] baby: male Hospital course: Unremarkable. 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 (5) contractions Status: Resolved (6) Hx of PTL ( labor), current Status: Resolved Qualifiers: Trimester: third trimester Qualified Code(s): O09.213 - Supervision of with history of pre-term labor, third trimester (7) (normal spontaneous vaginal delivery) Status: Resolved Plan - Discharge Medications Prescriptions: Ferrous Sulfate [Feosol 325 MG tab] 325 mg PO BID #60 tablet Ibuprofen [Motrin 800 MG tab] 800 mg PO Q6H PRN #20 tablet PRN Reason: Pain, Mild (1-3) Vit-Fe Fumar-FA [ Vitamin] 1 each PO QDAY #30 tablet - Provider Discharge Summary Activity: routine, no sex for 6 weeks, no heavy lifting 4 weeks, no strenuous exercise Diet: routine Instructions: routine Additional instructions: [] Smoking cessation referral if applicable(refer to patient education folder for contact #) [] Refer to [facility] Booklet Call your doctor immediately for: * Fever > 100.5 * Heavy vaginal bleeding ( >1 pad per hour) * Severe persistent headache * Shortness of breath * Reddened, hot, painful area to leg or breast * Drainage or odor from incision. * Keep incision clean and dry at all times and follow doctor's instructions regarding bathing/showering - Follow up plan Follow up: MORRIS CARO MD [Primary Care Provider] - 6 Weeks Forms: [facility] Discharge Summary
[2018-01-03] MEDS: FEOSOL PO SCH (09:41)
[2018-01-03] MEDS: COLACE PO SCH (09:42)
[2018-01-03] MEDS: PRENATAL VITAMIN PO SCH (09:42)
[2018-01-03] MEDS ORDERED: DOLOPHINE PO SCH (10:00)
[2018-01-03] MEDS: PHENERGAN PO PRN (11:55)
[2018-01-03 15:04] VITALS: BP 96/60
== END 2018-01-03 13:30 | disposition home or self-care (01) | DRG 775 ==
LOC: TRG 06:55 → LD 06:56 → TRG 08:03 → OB 11:19
PROVIDERS: ADMIT Obstetrics & Gynecology; ATTEND Obstetrics & Gynecology
PROC: 10E0XZZ Delivery of Products of Conception, External Approach (ICD-10-PCS; principal; 2018-01-02)
PROC: 3E0234Z Introduction of Serum, Toxoid and Vaccine into Muscle, Percutaneous Approach (ICD-10-PCS; 2018-01-03)
DX: O60.14X0 Preterm labor third trimester with preterm delivery third trimester, not applicable or unspecified (principal); O42.013 Preterm premature rupture of membranes, onset of labor within 24 hours of rupture, third trimester; O99.324 Drug use complicating childbirth; F19.90 Other psychoactive substance use, unspecified, uncomplicated; O69.81X0 Labor and delivery complicated by cord around neck, without compression, not applicable or unspecified; D64.9 Anemia, unspecified; O90.81 Anemia of the puerperium; Z37.0 Single live birth; Z23 Encounter for immunization; Z90.49 Acquired absence of other specified parts of digestive tract; Z3A.32 32 weeks gestation of pregnancy; Z91.041 Radiographic dye allergy status; Z91.013 Allergy to seafood; O62.3 Precipitate labor
CPT/HCPCS: 36415; 80307; 85014; 85018; 85027; 86403; 86850; 86900; 86901; 87116; 88307; 90715; 99211; 99406; A6250; G0463; J0290; J1885; J2210; J2405; J2590; J3010; J7120; Q0169

== ENCOUNTER 2018-11-17 10:28 | Emergency (ER) | payer MEDICAID ==
[2018-11-17 10:33] VITALS: BP 150/87
[2018-11-17] MEDS ORDERED: FUL-GLO OP ONE (10:34)
[2018-11-17] MEDS ORDERED: TETRACAINE 0.5% OU ONE (10:34)
--- NOTE | 2018-11-17 10:34 | Event Note ---
ED Screening Note ED Screening Note: b eye irritation started as sensation of fb no trauma no fever no eye pain no change in vision rx methadone pmh opiate abuse asthma migraine psh appy choley d/c liver biopsy no allergies other than to shellfish This initial assessment/diagnostic orders/clinical plan/treatment(s) is/are subject to change based on patients health status, clinical progression and re- assessment by fellow clinical providers in the ED. Further treatment and workup at subsequent clinical providers discretion. Patient/guardian urged not to elope from the ED as their condition may be serious if not clinically assessed and managed. Initial orders include:
[2018-11-17] MEDS ORDERED: ERYTHROMYCIN OPHTH OINT OU ONE (11:00)
--- NOTE | 2018-11-17 11:09 | Emergency Department Report ---
ED Eye Problem HPI - General Chief complaint: Eye Problems Stated complaint: EYE IRRITATION Time Seen by Provider: 11/17/18 10:32 Source: patient Mode of arrival: Ambulatory Limitations: No Limitations - History of Present Illness Initial comments: Pt is a 38 yo female who presents to the ED with c/o redness and irritation to the bilateral eyes that began a week ago. She states she has had yellow crusting drainage and eyelash matting. she denies any vision changes or wearing contacts. she states she has been constantly rubbing her eyes and now has a foreign body sensation. pt also states she has a hx of asthma and requests a refill of her albuterol inhaler. - Related Data Home Medications Medication Instructions Recorded Confirmed Last Taken Famotidine [Pepcid] 20 mg PO BID 01/02/18 01/02/18 01/02/18 05:00 20 Vit-Fe Fumar-FA [ 1 tab PO QDAY 01/02/18 01/02/18 01/02/18 05:00 Vitamin] 1 Simethicone [Bicarsim Forte] 125 mg PO PRN 01/02/18 01/02/18 01/02/18 05:00 125 Previous Rx's Medication Instructions Recorded Last Taken Type Ferrous Sulfate [Feosol 325 MG tab] 325 mg PO BID #60 tablet 01/03/18 Unknown Rx Ibuprofen [Motrin 800 MG tab] 800 mg PO Q6H PRN #20 tablet 01/03/18 Unknown Rx Vit-Fe Fumar-FA [ 1 each PO QDAY #30 tablet 01/03/18 Unknown Rx Vitamin] Albuterol Sulfate [Proventil Hfa] 2 puff INHALATION Q4HR PRN #1 11/17/18 Unknown Rx [email or web address] Erythromycin [Erythromycin Ophth 0.5 inch OP QID 7 Days #1 tube 11/17/18 Unknown Rx Oint] Allergies Allergy/AdvReac Type Severity Reaction Status Date / Time iodine Allergy Rash Verified 01/02/18 07:38 shellfish derived Allergy Itching Verified 12/29/17 21:16 ED Review of Systems ROS: Stated complaint: EYE IRRITATION Other details as noted in HPI Comment: All other systems reviewed and negative ED Past Medical Hx - Past Medical History Previous Medical History?: Yes Hx Hypertension: No Hx Congestive Heart Failure: No Hx Diabetes: No Hx Deep Vein Thrombosis: No Hx Renal Disease: No Hx Sickle Cell Disease: No Hx Headaches / Migraines: Yes Hx Seizures: No Hx Asthma: Yes (uses inhaler) Hx COPD: No Hx HIV: No Additional medical history: DRUD ADDICTION 2 YEARS AGO - Surgical History Past Surgical History?: Yes Hx Cholecystectomy: Yes Hx Appendectomy: Yes Additional Surgical History: D&C. liver biopsy - Social History Smoking Status: Current Every Day Smoker Substance Use Type: None - Medications Home Medications: Home Medications Medication Instructions Recorded Confirmed Last Taken Type Famotidine [Pepcid] 20 mg PO BID 01/02/18 01/02/18 01/02/18 05:00 History 20 Vit-Fe Fumar-FA [ 1 tab PO QDAY 01/02/18 01/02/18 01/02/18 05:00 History Vitamin] 1 Simethicone [Bicarsim Forte] 125 mg PO PRN 01/02/18 01/02/18 01/02/18 05:00 History 125 Ferrous Sulfate [Feosol 325 MG tab] 325 mg PO BID #60 tablet 01/03/18 Unknown Rx Ibuprofen [Motrin 800 MG tab] 800 mg PO Q6H PRN #20 tablet 01/03/18 Unknown Rx Vit-Fe Fumar-FA [ 1 each PO QDAY #30 tablet 01/03/18 Unknown Rx Vitamin] Albuterol Sulfate [Proventil Hfa] 2 puff INHALATION Q4HR PRN #1 11/17/18 Unknow n Rx [email or web address] Erythromycin [Erythromycin Ophth 0.5 inch OP QID 7 Days #1 tube 11/17/18 Unknown Rx Oint] ED Physical Exam - General Limitations: No Limitations General appearance: alert, in no apparent distress - Head Head exam: Present: atraumatic, normocephalic - Eye Eye exam: Present: PERRL (pinpoint pupils), EOMI, conjunctival injection (bilaterally, with crusted drainage in the corners of the eyes ), other (fluorscein and fisher lamp used, very small area of dye uptake present on the right eye at the 6 oclock position, left eye with no uptake, no foreign body visualized). Absent: nystagmus - Respiratory Respiratory exam: Absent: respiratory distress - Neurological Exam Neurological exam: Present: alert, oriented X3 - Psychiatric Psychiatric exam: Present: normal affect, normal mood - Skin Skin exam: Present: warm, dry, intact ED Course Vital Signs 11/17/18 10:31 Temperature 98.1 F Pulse Rate 112 H Respiratory 18 Rate Blood Pressure 150/87 O2 Sat by Pulse 100 Oximetry ED Medical Decision Making - Medical Decision Making Pt is a 38 yo female who presents to the ED with c/o redness and irritation to the bilateral eyes that began a week ago. She states she has had yellow crusting drainage and eyelash matting. she denies any vision changes or wearing contacts. she states she has been constantly rubbing her eyes and now has a foreign body sensation. pt also states she has a hx of asthma and requests a refill of her albuterol inhaler. on exam pt has pinpoint pupils which are equal and responsive to light, bilateral conjunctival injection, fluorscein and fisher lamp used, very small area of dye uptake present on the right eye at the 6 oclock position, left eye with no uptake, no foreign body visualized. pt treated for bilateral conjunctivitis and small corneal abrasion. visual acuity bilaterally 20/25, right eye 20/25, left eye 20/50. given prescription for erythromycin ointment. discussed to please use medication as prescribed. please follow up with an administrative sales assistant in the next 2-3 days. return to the emergency room for any new or worsening symptoms. Critical care attestation.: If time is entered above; I have spent that time in minutes in the direct care of this critically ill patient, excluding procedure time. ED Disposition Clinical Impression: Conjunctivitis Qualifiers: Conjunctivitis type: acute Acute conjunctivitis type: unspecified Laterality: bilateral Qualified Code(s): H10.33 - Unspecified acute conjunctivitis, bilateral Corneal abrasion Qualifiers: Encounter type: initial encounter Laterality: right Qualified Code(s): S05.01XA - Injury of conjunctiva and corneal abrasion without foreign body, right eye, initial encounter Disposition: - TO HOME OR SELFCARE Is pt being admited?: No Does the pt Need Aspirin: No Condition: Stable Instructions: Conjunctivitis (ED), Corneal Abrasion (ED) Additional Instructions: please use medication as prescribed. please follow up with an administrative sales assistant in the next 2-3 days. return to the emergency room for any new or worsening symptoms. Prescriptions: Erythromycin [Erythromycin Ophth Oint] 0.5 inch OP QID 7 Days #1 tube Albuterol Sulfate [Proventil Hfa] 2 puff INHALATION Q4HR PRN #1 [email or web address] PRN Reason: Wheezing Referrals: BRENNAN MARTINEZ MD [Staff Physician] - 2-3 Days Time of Disposition: 11:09 Print Language: PALAUAN
== END 2018-11-17 11:19 | disposition home or self-care (01) ==
LOC: ED 10:28
DX: S05.01XA Injury of conjunctiva and corneal abrasion without foreign body, right eye, initial encounter (principal); H10.33 Unspecified acute conjunctivitis, bilateral; X58.XXXA Exposure to other specified factors, initial encounter; Y93.89 Activity, other specified; Y92.89 Other specified places as the place of occurrence of the external cause; Y99.8 Other external cause status

== ENCOUNTER 2019-01-17 10:51 | Emergency (ER) | payer MEDICAID ==
[2019-01-17 11:05] VITALS: BP 122/88
[2019-01-17 11:36] LABS: Bilirubin,Urine NEG (Negative); Blood,Urine LG (Negative); Color,Urine Yellow (Yellow); Mucus,Urine FEW /HPF; Urobilinogen,Urine < 2.0 mg/dL (<2.0)
[2019-01-17 11:37] LABS: RBC,Urine > 182.0 /HPF (0.0-6.0)
[2019-01-17 11:56] LABS: Basophils % (Auto) 0.4 % (0.0-1.8); Eosinophils # (Auto) 0.1 K/mm3 (0.0-0.4); Eosinophils % (Auto) 1.5 % (0.0-4.3); Hematocrit 38.7 % (30.3-42.9); Hemoglobin 12.8 gm/dl (10.1-14.3); Lymphocytes # (Auto) 1.4 K/mm3 (1.2-5.4); Lymphocytes % (Auto) 22.1 % (13.4-35.0); Mean Corpuscular HGB Conc 33 % (30-34); Mean Corpuscular Volume 90 fl (79-97); Monocytes # (Auto) 0.4 K/mm3 (0.0-0.8); Monocytes % (Auto) 5.7 % (0.0-7.3); Platelet Count 193 K/mm3 (140-440)
[2019-01-17 12:04] LABS: Alanine Aminotransferase 20 units/L (7-56); Albumin 3.6 g/dL (3.9-5); BUN/Creatinine Ratio 7; Blood Urea Nitrogen 5 mg/dL (7-17); Calcium 8.6 mg/dL (8.4-10.2); Hemolysis Index 30
--- NOTE | 2019-01-17 12:50 | Emergency Department Report ---
ED Female HPI - General Chief complaint: Abdominal Pain Stated complaint: ABD PAIN Time Seen by Provider: 01/17/19 11:51 Source: patient Mode of arrival: Ambulatory Limitations: No Limitations - History of Present Illness Initial comments: 38-year-old female with a history of uterine fibroids presents to ED complaining of lower pelvic pain and feelings of bloatedness since she started on her menstrual cycle 3 days ago. Complaint: pelvic pain -: Gradual Radiation: non-radiating Severity: moderate Severity scale (0 -10): 7 Quality: cramping, aching Consistency: intermittent Improves with: none Worsens with: menstrual period Are you Now?: No Associated Symptoms: denies: vaginal discharge, vaginal bleeding, nausea/vomiting, headaches, loss of appetite - Related Data Home Medications Medication Instructions Recorded Confirmed Last Taken Famotidine [Pepcid] 20 mg PO BID 01/02/18 01/02/18 01/02/18 05:00 20 Vit-Fe Fumar-FA [ 1 tab PO QDAY 01/02/18 01/02/18 01/02/18 05:00 Vitamin] 1 Simethicone [Bicarsim Forte] 125 mg PO PRN 01/02/18 01/02/18 01/02/18 05:00 125 Previous Rx's Medication Instructions Recorded Last Taken Type Ferrous Sulfate [Feosol 325 MG tab] 325 mg PO BID #60 tablet 01/03/18 Unknown Rx Vit-Fe Fumar-FA [ 1 each PO QDAY #30 tablet 01/03/18 Unknown Rx Vitamin] Erythromycin [Erythromycin Ophth 0.5 inch OP QID 7 Days #1 tube 11/17/18 Unknown Rx Oint] Albuterol Sulfate [Proventil Hfa] 2 puff INHALATION Q4HR PRN #1 01/17/19 Unknown Rx [email or web address] Cyclobenzaprine [Flexeril] 10 mg PO QHS PRN #15 tablet 01/17/19 Unknown Rx Ibuprofen [Motrin 800 MG tab] 800 mg PO Q8H PRN #25 tablet 01/17/19 Unknown Rx Allergies Allergy/AdvReac Type Severity Reaction Status Date / Time iodine Allergy Rash Verified 01/17/19 10:52 shellfish derived Allergy Itching Verified 01/17/19 10:52 ED Review of Systems ROS: Stated complaint: ABD PAIN Other details as noted in HPI Comment: All other systems reviewed and negative ED Past Medical Hx - Past Medical History Hx Hypertension: No Hx Congestive Heart Failure: No Hx Diabetes: No Hx Deep Vein Thrombosis: No Hx Renal Disease: No Hx Sickle Cell Disease: No Hx Headaches / Migraines: Yes Hx Seizures: No Hx Asthma: Yes (uses inhaler) Hx COPD: No Hx HIV: No Additional medical history: DRUG ADDICTION 2 YEARS AGO. FIBROID - Surgical History Hx Cholecystectomy: Yes Hx Appendectomy: Yes Additional Surgical History: D&C. liver biopsy - Social History Smoking Status: Never Smoker - Medications Home Medications: Home Medications Medication Instructions Recorded Confirmed Last Taken Type Famotidine [Pepcid] 20 mg PO BID 01/02/18 01/02/18 01/02/18 05:00 History 20 Vit-Fe Fumar-FA [ 1 tab PO QDAY 01/02/18 01/02/18 01/02/18 05:00 History Vitamin] 1 Simethicone [Bicarsim Forte] 125 mg PO PRN 01/02/18 01/02/18 01/02/18 05:00 History 125 Ferrous Sulfate [Feosol 325 MG tab] 325 mg PO BID #60 tablet 01/03/18 Unknown Rx Vit-Fe Fumar-FA [ 1 each PO QDAY #30 tablet 01/03/18 Unknown Rx Vitamin] Erythromycin [Erythromycin Ophth 0.5 inch OP QID 7 Days #1 tube 11/17/18 Unknown Rx Oint] Albuterol Sulfate [Proventil Hfa] 2 puff INHALATION Q4HR PRN #1 01/17/19 Unknown Rx [email or web address] Cyclobenzaprine [Flexeril] 10 mg PO QHS PRN #15 tablet 01/17/19 Unknown Rx Ibuprofen [Motrin 800 MG tab] 800 mg PO Q8H PRN #25 tablet 01/17/19 Unknown Rx ED Physical Exam - General Limitations: No Limitations General appearance: alert, in no apparent distress - Head Head exam: Present: atraumatic, normocephalic - Eye Eye exam: Present: normal appearance - ENT ENT exam: Present: mucous membranes moist - Neck Neck exam: Present: normal inspection - Respiratory Respiratory exam: Present: normal lung sounds bilaterally. Absent: respiratory distress - Cardiovascular Cardiovascular Exam: Present: regular rate, normal rhythm. Absent: systolic murmur, diastolic murmur, rubs, gallop - GI/Abdominal GI/Abdominal exam: Present: soft, rigid (the pelvis region consistent with uterine fibroids), normal bowel sounds, mass. Absent: distended, tenderness, guarding - Extremities Exam Extremities exam: Present: normal inspection - Back Exam Back exam: Present: normal inspection - Neurological Exam Neurological exam: Present: alert, oriented X3 - Psychiatric Psychiatric exam: Present: normal affect, normal mood - Skin Skin exam: Present: warm, dry, intact, normal color. Absent: rash ED Course Vital Signs 01/17/19 01/17/19 11:03 11:19 Temperature 97.9 F Pulse Rate 110 H Respiratory 17 18 Rate Blood Pressure 122/88 O2 Sat by Pulse 100 Oximetry ED Medical Decision Making - Lab Data Result diagrams: 01/17/19 11:19 01/17/19 11:19 - Medical Decision Making 38-year-old female presents with pelvic pain uterine fibroids and menorrhagia Patient states she said some Motrin earlier today for the pain relief. Patient is in methadone patient cannot take opiates. Discussed with patient to follow up with [facility] in 2-3 days. Patient is referred referral is given. Patient states shortness. Patient is also requesting for refill of her albuterol inhaler for asthma. Vital signs are normal she is in no acute or respiratory distress. Critical care attestation.: If time is entered above; I have spent that time in minutes in the direct care of this critically ill patient, excluding procedure time. ED Disposition Clinical Impression: Pelvic pain, History of uterine fibroid, Menorrhagia with regular cycle Disposition: - TO HOME OR SELFCARE Is pt being admited?: No Does the pt Need Aspirin: No Condition: Stable Instructions: Abdominal Pain (ED), Chronic Pelvic Pain in Women (ED), Uterine Fibroids (ED) Additional Instructions: Make sure to follow up with the [facility] as discussed. Take all your medications as you've been prescribed. If you have any worsening symptoms or develop new symptoms please return to ED immediately. Prescriptions: Cyclobenzaprine [Flexeril] 10 mg PO QHS PRN #15 tablet PRN Reason: Muscle Spasm Ibuprofen [Motrin 800 MG tab] 800 mg PO Q8H PRN #25 tablet PRN Reason: Pain, Mild (1-3) Albuterol Sulfate [Proventil Hfa] 2 puff INHALATION Q4HR PRN #1 [email or web address] PRN Reason: Wheezing Referrals: NOLA SAWYER MD [Primary Care Provider] - 3-5 Days [facility] [Provider Group] - 3-5 Days [facility] [Provider Group] - 3-5 Days Forms: Work/School Release Form(ED) Time of Disposition: 12:59
== END 2019-01-17 13:25 | disposition home or self-care (01) ==
LOC: ED 10:51
DX: N92.0 Excessive and frequent menstruation with regular cycle (principal); R10.2 Pelvic and perineal pain; G43.909 Migraine, unspecified, not intractable, without status migrainosus; J45.909 Unspecified asthma, uncomplicated; Z90.49 Acquired absence of other specified parts of digestive tract; Z79.899 Other long term (current) drug therapy; Z88.8 Allergy status to other drugs, medicaments and biological substances; Z91.013 Allergy to seafood
CPT/HCPCS: 36415; 80053; 81001; 85025; 87086; 99283

== ENCOUNTER 2019-08-21 15:33 | Emergency (ER) | payer MEDICAID ==
[2019-08-21 16:14] VITALS: BP 120/80
--- NOTE | 2019-08-21 16:14 | Event Note ---
ED Screening Note Date of service: 08/21/19 Time: 16:14 ED Screening Note: This initial assessment/diagnostic orders/clinical plan/treatment(s) is/are subject to change based on patients health status, clinical progression and re- assessment by fellow clinical providers in the ED. Further treatment and workup at subsequent clinical providers discretion. Patient/guardian urged not to elope from the ED as their condition may be serious if not clinically assessed and managed. Initial orders include: 39yo F states that she has abdominal pain and nausea x 3 days.
--- NOTE | 2019-08-21 16:39 | Emergency Department Report ---
ED Abdominal Pain HPI - General Chief Complaint: Abdominal Pain Stated Complaint: STOMACH PAIN Time Seen by Provider: 08/21/19 16:10 Source: patient, family Mode of arrival: Ambulatory Limitations: No Limitations - History of Present Illness Initial Comments: This is a 39-year-old female here for abdominal pain nausea and vomiting x3 days. Denies any fever or chills. Denies any vaginal bleeding or urinary burning or frequency. Denies any diarrhea or constipation. Last menstrual period was 04/29/2017. History of appendectomy and cholecystectomy. History of liver biopsy which she said was normal findings. History of drug use and fibroids. History of asthma. Patient reported history of alcohol and drug abuse. Pain is crampy on and off and no medication taken prior to coming to the emergency room. Pain is located to the lower abdomen. Pain is 6 out of 10 on and off. MD Complaint: abdominal pain Onset/Timin -: days(s) Radiation: none Migration to: no migration Severity: severe Severity scale (0 -10): 6 Quality: cramping Consistency: intermittent Improves With: nothing Worsens With: nothing Associated Symptoms: nausea, vomiting. denies: diarrhea, fever, chills, constipation, dysuria, hematemesis, hematochezia, melena, hematuria, anorexia, syncope - Related Data LMP (females 10-50): other (04/29/2017) Home Medications Medication Instructions Recorded Confirmed Last Taken Famotidine [Pepcid] 20 mg PO BID 01/02/18 01/02/18 01/02/18 05:00 20 Vit-Fe Fumar-FA [ 1 tab PO QDAY 01/02/18 01/02/18 01/02/18 05:00 Vitamin] 1 Simethicone [Bicarsim Forte] 125 mg PO PRN 01/02/18 01/02/18 01/02/18 05:00 125 Previous Rx's Medication Instructions Recorded Last Taken Type Ferrous Sulfate [Feosol 325 MG tab] 325 mg PO BID #60 tablet 01/03/18 Unknown Rx Vit-Fe Fumar-FA [ 1 each PO QDAY #30 tablet 01/03/18 Unknown Rx Vitamin] Erythromycin [Erythromycin Ophth 0.5 inch OP QID 7 Days #1 tube 11/17/18 Unknown Rx Oint] Albuterol Sulfate [Proventil Hfa] 2 puff INHALATION Q4HR PRN #1 01/17/19 Unknown Rx hfa.aer.ad Cyclobenzaprine [Flexeril] 10 mg PO QHS PRN #15 tablet 01/17/19 Unknown Rx Ibuprofen [Motrin 800 MG tab] 800 mg PO Q8H PRN #25 tablet 01/17/19 Unknown Rx Albuterol Sulfate [Proair 90 mcg IH Q6H PRN #1 aer.pow.ba 08/21/19 Unknown Rx Respiclick] Naproxen 500 mg PO Q12H PRN #10 tablet 08/21/19 Unknown Rx Ondansetron [Zofran ODT TAB] 8 mg PO Q8HR PRN #12 tab.rapdis 08/21/19 Unknown Rx Sulfamethoxazole/Trimethoprim 1 each PO BID 7 Days #14 tablet 08/21/19 Unknown Rx [Bactrim DS TAB] Allergies Allergy/AdvReac Type Severity Reaction Status Date / Time iodine Allergy Rash Verified 01/17/19 10:52 shellfish derived Allergy Itching Verified 01/17/19 10:52 ED Review of Systems ROS: Stated complaint: STOMACH PAIN Other details as noted in HPI Constitutional: denies: chills, fever Respiratory: denies: cough, shortness of breath, wheezing Cardiovascular: denies: chest pain, palpitations, edema, syncope Gastrointestinal: abdominal pain, nausea, vomiting. denies: diarrhea, constipation, hematemesis, melena, hematochezia Genitourinary: denies: urgency, dysuria, hematuria, abnormal menses Musculoskeletal: denies: back pain, joint swelling, arthralgia Skin: denies: rash Neurological: denies: headache ED Past Medical Hx - Past Medical History Previous Medical History?: Yes Hx Hypertension: No Hx Congestive Heart Failure: No Hx Diabetes: No Hx Deep Vein Thrombosis: No Hx Renal Disease: No Hx Sickle Cell Disease: No Hx Headaches / Migraines: Yes Hx Seizures: No Hx Asthma: Yes (uses inhaler) Hx COPD: No Hx HIV: No Additional medical history: DRUG ADDICTION 2 YEARS AGO. FIBROID - Surgical History Past Surgical History?: Yes Hx Cholecystectomy: Yes Hx Appendectomy: Yes Additional Surgical History: D&C. liver biopsy - Family History Family history: asthma, hypertension - Social History Smoking Status: Current Every Day Smoker Substance Use Type: None, Prescribed - Medications Home Medications: Home Medications Medication Instructions Recorded Confirmed Last Taken Type Famotidine [Pepcid] 20 mg PO BID 01/02/18 01/02/18 01/02/18 05:00 History 20 Vit-Fe Fumar-FA [ 1 tab PO QDAY 01/02/18 01/02/18 01/02/18 05:00 History Vitamin] 1 Simethicone [Bicarsim Forte] 125 mg PO PRN 01/02/18 01/02/18 01/02/18 05:00 History 125 Ferrous Sulfate [Feosol 325 MG tab] 325 mg PO BID #60 tablet 01/03/18 Unknown Rx Vit-Fe Fumar-FA [ 1 each PO QDAY #30 tablet 01/03/18 Unknown Rx Vitamin] Erythromycin [Erythromycin Ophth 0.5 inch OP QID 7 Days #1 tube 11/17/18 U nknown Rx Oint] Albuterol Sulfate [Proventil Hfa] 2 puff INHALATION Q4HR PRN #1 01/17/19 Un known Rx hfa.aer.ad Cyclobenzaprine [Flexeril] 10 mg PO QHS PRN #15 tablet 01/17/19 Unknown Rx Ibuprofen [Motrin 800 MG tab] 800 mg PO Q8H PRN #25 tablet 01/17/19 Unknown Rx Albuterol Sulfate [Proair 90 mcg IH Q6H PRN #1 aer.pow.ba 08/21/19 Unknown Rx Respiclick] Naproxen 500 mg PO Q12H PRN #10 tablet 08/21/19 Unknown Rx Ondansetron [Zofran ODT TAB] 8 mg PO Q8HR PRN #12 tab.rapdis 08/21/19 Unknown Rx Sulfamethoxazole/Trimethoprim 1 each PO BID 7 Days #14 tablet 08/21/19 Unknown Rx [Bactrim DS TAB] ED Physical Exam - General Limitations: No Limitations General appearance: alert, in no apparent distress - Head Head exam: Present: atraumatic, normocephalic, normal inspection - Eye Eye exam: Present: normal appearance, PERRL, EOMI Pupils: Present: normal accommodation - ENT ENT exam: Present: normal exam, normal orophraynx, mucous membranes moist - Neck Neck exam: Present: normal inspection, full ROM. Absent: tenderness, lymphadenopathy - Respiratory Respiratory exam: Present: normal lung sounds bilaterally. Absent: respiratory distress, chest wall tenderness - Cardiovascular Cardiovascular Exam: Present: normal rhythm, bradycardia, normal heart sounds - GI/Abdominal GI/Abdominal exam: Present: soft, normal bowel sounds. Absent: distended, tenderness, guarding, rebound, rigid, organomegaly, mass, bruit, pulsatile mass - Extremities Exam Extremities exam: Present: normal inspection, full ROM, normal capillary refill, other (No cce. + 2 pulses in all extremities, no neurovascular compromise). Absent: tenderness, pedal edema - Back Exam Back exam: Present: normal inspection, full ROM, other (Ambulates without any difficulties). Absent: tenderness, CVA tenderness (R), CVA tenderness (L), paraspinal tenderness, vertebral tenderness, rash noted - Neurological Exam Neurological exam: Present: alert, oriented X3, normal gait - Psychiatric Psychiatric exam: Present: normal affect, normal mood - Skin Skin exam: Present: warm, dry, intact, normal color. Absent: rash ED Course Vital Signs 08/21/19 08/21/19 16:11 19:35 Temperature 98.6 F Pulse Rate 113 H 92 H Respiratory 16 Rate Blood Pressure 120/80 O2 Sat by Pulse 98 Oximetry - Reevaluation(s) Reevaluation #1: 08/21/19 19:37 Patient stable no acute distress. Pain is controlled. Heart rate is at 92. ED Medical Decision Making - Lab Data Result diagrams: 08/21/19 16:30 08/21/19 16:30 Lab Results 08/21/19 08/21/19 08/21/19 Range/Units 16:30 16:30 16:41 WBC 5.4 (4.5-11.0) K/mm3 RBC 4.57 (3.65-5.03) M/mm3 Hgb 13.5 (10.1-14.3) gm/dl Hct 42.6 (30.3-42.9) % MCV 93 (79-97) fl MCH 30 (28-32) pg MCHC 32 (30-34) % RDW 17.1 H (13.2-15.2) % Plt Count 149 (140-440) K/mm3 Sodium 134 L (137-145) mmol/L Potassium 4.2 (3.6-5.0) mmol/L Chloride 97.0 L (98-107) mmol/L Carbon Dioxide 23 (22-30) mmol/L Anion Gap 18 mmol/L BUN 3 L (7-17) mg/dL Creatinine 0.7 (0.7-1.2) mg/dL Estimated GFR > 60 ml/min BUN/Creatinine Ratio 4 % Glucose 119 H (65-100) mg/dL Calcium 9.2 (8.4-10.2) mg/dL Total Bilirubin 0.50 (0.1-1.2) mg/dL AST 75 H (5-40) units/L ALT 53 (7-56) units/L Alkaline Phosphatase 134 H (35-129) units/L Total Protein 8.0 (6.3-8.2) g/dL Albumin 3.8 L (3.9-5) g/dL Albumin/Globulin Ratio 0.9 % Lipase (13-60) units/L HCG, Qual Negative (Negative) Urine Color (Yellow) Urine Turbidity (Clear) Urine pH (5.0-7.0) Ur Specific [place] (1.003-1.030) Urine Protein (Negative) mg/dL Urine Glucose (UA) (Negative) mg/dL Urine Ketones (Negative) mg/dL Urine Blood (Negative) Urine Nitrite (Negative) Urine Bilirubin (Negative) Urine Urobilinogen (<2.0) mg/dL Ur Leukocyte Esterase (Negative) Urine WBC (Auto) (0.0-6.0) /HPF Urine RBC (Auto) (0.0-6.0) /HPF U Epithel Cells (Auto) (0-13.0) /HPF Urine Bacteria (Auto) (Negative) /HPF 08/21/19 08/21/19 Range/Units 16:41 17:47 WBC (4.5-11.0) K/mm3 RBC (3.65-5.03) M/mm3 Hgb (10.1-14.3) gm/dl Hct (30.3-42.9) % MCV (79-97) fl MCH (28-32) pg MCHC (30-34) % RDW (13.2-15.2) % Plt Count (140-440) K/mm3 Sodium (137-145) mmol/L Potassium (3.6-5.0) mmol/L Chloride (98-107) mmol/L Carbon Dioxide (22-30) mmol/L Anion Gap mmol/L BUN (7-17) mg/dL Creatinine (0.7-1.2) mg/dL Estimated GFR ml/min BUN/Creatinine Ratio % Glucose (65-100) mg/dL Calcium (8.4-10.2) mg/dL Total Bilirubin (0.1-1.2) mg/dL AST (5-40) units/L ALT (7-56) units/L Alkaline Phosphatase (35-129) units/L Total Protein (6.3-8.2) g/dL Albumin (3.9-5) g/dL Albumin/Globulin Ratio % Lipase 15 (13-60) units/L HCG, Qual (Negative) Urine Color Yellow (Yellow) Urine Turbidity Slightly-cloudy (Clear) Urine pH 6.0 (5.0-7.0) Ur Specific [place] 1.003 (1.003-1.030) Urine Protein <15 mg/dl (Negative) mg/dL Urine Glucose (UA) Neg (Negative) mg/dL Urine Ketones Neg (Negative) mg/dL Urine Blood Sm (Negative) Urine Nitrite Neg (Negative) Urine Bilirubin Neg (Negative) Urine Urobilinogen < 2.0 (<2.0) mg/dL Ur Leukocyte Esterase Mod (Negative) Urine WBC (Auto) 21.0 H (0.0-6.0) /HPF Urine RBC (Auto) 4.0 (0.0-6.0) /HPF U Epithel Cells (Auto) 3.0 (0-13.0) /HPF Urine Bacteria (Auto) 1+ (Negative) /HPF Urine culture pending - Radiology Data Radiology results: report reviewed interpreted by me: Preliminary report on pelvic ultrasound with uterine fibroid. No ovarian abnormalities. Final report to follow Transabdominal and transvaginal ultrasound dictated by radiologist and report reviewed by myself. Findings [facility] [address] [place] [address] Ultrasound Report Signed Patient: CHIARA PATEL MR#: [id number] : 1980 Acct:[id number] Age/Sex: 39 / F ADM Date: 08/21/19 Loc: ED Attending Dr: Ordering Physician: MAVERICK BRUNSON Date of Service: 08/21/19 Procedure(s): US transvaginal Accession Number(s): [id number] cc: MAVERICK BRUNSON ULTRASOUND PELVIS INDICATION / CLINICAL INFORMATION: Abdominal pain pelvic area. TECHNIQUE: Transabdominal and Transvaginal. Duplex Color Doppler used: Yes. COMPARISON: None available FINDINGS: UTERUS: Present. - Appearance (if present): No significant abnormality. - Size in cm (if present): 6.9 x 3.5 x 5.6. - Endometrial Complex (if present): No significant abnormality.. Thickness in cm (if measured) = 0.8 - Mass lesions: 2.1 x 1.8 x 2.1 cm intramural fibroid at the anterior uterine body - Additional findings: None. RIGHT ADNEXA: No significant ovarian cyst or mass. Normal color Doppler blood flow. LEFT ADNEXA: No significant ovarian cyst or mass. Normal color Doppler blood flow. URINARY BLADDER: No significant abnormality. FREE FLUID: None. ADDITIONAL FINDINGS: None. IMPRESSION: 1. Single intramural fibroid in the uterine body of about 2 cm diameter. Signer Name: Diallo Davila MD Signed: 08/21/2019 7:56 PM Workstation Name: [id number] Transcribed By: DMPadilla Dictated By: Diallo Davila MD Electronically Authenticated By: Diallo Davila MD Signed Date/Time: 08/21/191955 DD/ 53 TD/TT: Findings [facility] [address] [place] [address] Ultrasound Report Signed Patient: CHIARA PATEL MR#: [id number] : 1980 Acct:[id number] Age/Sex: 39 / F ADM Date: 08/21/19 Loc: ED Attending Dr: Ordering Physician: MAVERICK BRUNSON Date of Service: 08/21/19 Procedure(s): US pelvic complete Accession Number(s): [id number] cc: MAVERICK BRUNSON ULTRASOUND PELVIS INDICATION / CLINICAL INFORMATION: Abdominal pain pelvic area. TECHNIQUE: Transabdominal and Transvaginal. Duplex Color Doppler used: Yes. COMPARISON: None available FINDINGS: UTERUS: Present. - Appearance (if present): No significant abnormality. - Size in cm (if present): 6.9 x 3.5 x 5.6. - Endometrial Complex (if present): No significant abnormality.. Thickness in cm (if measured) = 0.8 - Mass lesions: 2.1 x 1.8 x 2.1 cm intramural fibroid at the anterior uterine body - Additional findings: None. RIGHT ADNEXA: No significant ovarian cyst or mass. Normal color Doppler blood flow. LEFT ADNEXA: No significant ovarian cyst or mass. Normal color Doppler blood flow. URINARY BLADDER: No significant abnormality. FREE FLUID: None. ADDITIONAL FINDINGS: None. IMPRESSION: 1. Single intramural fibroid in the uterine body of about 2 cm diameter. Signer Name: Diallo Davila MD Signed: 08/21/2019 7:56 PM Workstation Name: [id number] Transcribed By: BUCK Dictated By: Diallo Davila MD Electronically Authenticated By: Diallo Davila MD Signed Date/Time: 08/21/191955 DD/ 53 TD/TT: - Medical Decision Making 39-year-old female here complaint abdominal pain nausea and vomiting x3 days. Patient vital signs stable,afebrile. Transabdominal and transvaginal ultrasound shows uterine fibroids but no other acute findings. CBC and chemistry stable except for liver enzymes elevated which is chronic per patient. She is to follow-up with her primary care and gastroenterology in 2 to 3 days or return to emergency room if condition worsens. Urinalysis showed UTI and culture sent. test is negative. I discussed with patient diagnosis and treatment plan and medication. She voiced understanding. Patient discharged home with prescription for Bactrim DS and Zofran. Patient requested refill on albuterol which she was given. - Differential Diagnosis Ectopic , uterine fibroid, ovarian cyst, UTI Critical care attestation.: If time is entered above; I have spent that time in minutes in the direct care of this critically ill patient, excluding procedure time. 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 If your condition worsens, return to the emergency room Take medication as prescribed You will need follow-up labs to check liver function. Prescriptions: Sulfamethoxazole/Trimethoprim [Bactrim DS TAB] 1 each PO BID 7 Days #14 tablet Naproxen 500 mg PO Q12H PRN #10 tablet PRN Reason: Pelvic pain Albuterol Sulfate [Proair Respiclick] 90 mcg IH Q6H PRN #1 aer.pow.ba PRN Reason: Cough or wheezing Ondansetron [Zofran ODT TAB] 8 mg PO Q8HR PRN #12 tab.rapdis PRN Reason: Nausea And Vomiting Referrals: [facility] [Provider Group] - 08/23/19 PRIMARY CAREMD [Primary Care Provider] - 08/23/19 MORRIS CARO MD [Staff Physician] - 08/23/19
[2019-08-21 16:46] LABS: Hematocrit 42.6 % (30.3-42.9); Hemoglobin 13.5 gm/dl (10.1-14.3); Mean Corpuscular HGB Conc 32 % (30-34); Mean Corpuscular Volume 93 fl (79-97); Platelet Count 149 K/mm3 (140-440); Red Blood Count 4.57 M/mm3 (3.65-5.03); Red Cell Distribution Width 17.1 % (13.2-15.2)
[2019-08-21 17:08] LABS: Alanine Aminotransferase 53 units/L (7-56); Albumin 3.8 g/dL (3.9-5); BUN/Creatinine Ratio 4; Blood Urea Nitrogen 3 mg/dL (7-17); Calcium 9.2 mg/dL (8.4-10.2); Hemolysis Index 2
[2019-08-21 18:02] LABS: Bacteria,Urine 1+ /HPF (Negative); Bilirubin,Urine NEG (Negative); Blood,Urine SM (Negative); Color,Urine Yellow (Yellow); Protein,Urine <15 mg/dL mg/dL (Negative); Urobilinogen,Urine < 2.0 mg/dL (<2.0)
[2019-08-21] MEDS ORDERED: VANCOMYCIN/NS 1 GM/250 ML 1 GM/250 ML BAG IV ONE (18:55)
[2019-08-21] MEDS ORDERED: AMPICILLIN/SULBACTA 3GM/100ML 3 GM/100 ML BAG IV ONE (18:56)
--- NOTE | 2019-08-21 20:01 | Ultrasound Report ---
ULTRASOUND PELVIS INDICATION / CLINICAL INFORMATION: Abdominal pain pelvic area. TECHNIQUE: Transabdominal and Transvaginal. Duplex Color Doppler used: Yes. COMPARISON: None available FINDINGS: UTERUS: Present. - Appearance (if present): No significant abnormality. - Size in cm (if present): 6.9 x 3.5 x 5.6. - Endometrial Complex (if present): No significant abnormality.. Thickness in cm (if measured) = 0.8 - Mass lesions: 2.1 x 1.8 x 2.1 cm intramural fibroid at the anterior uterine body - Additional findings: None. RIGHT ADNEXA: No significant ovarian cyst or mass. Normal color Doppler blood flow. LEFT ADNEXA: No significant ovarian cyst or mass. Normal color Doppler blood flow. URINARY BLADDER: No significant abnormality. FREE FLUID: None. ADDITIONAL FINDINGS: None. IMPRESSION: 1. Single intramural fibroid in the uterine body of about 2 cm diameter. Signer Name: Diallo Davila MD Signed: 08/21/2019 7:56 PM Workstation Name: [id number]
== END 2019-08-21 20:05 | disposition home or self-care (01) ==
LOC: ED 15:33
DX: N30.01 Acute cystitis with hematuria (principal); D25.9 Leiomyoma of uterus, unspecified; R94.5 Abnormal results of liver function studies
CPT/HCPCS: 36415; 76830; 76856; 80053; 81001; 83690; 84703; 85027; 87076; 87086; 87186; 99284; J3370; J0295

== ENCOUNTER 2020-01-04 14:52 | Emergency (ER) | payer MEDICAID ==
[2020-01-04 14:58] VITALS: BP 137/94
[2020-01-04 15:42] LABS: Bilirubin,Urine NEG (Negative); Blood,Urine LG (Negative); Color,Urine Amber (Yellow); Mucus,Urine 1+ /HPF
[2020-01-04 15:44] LABS: Basophils % (Auto) 0.7 % (0.0-1.8); Eosinophils # (Auto) 0.1 K/mm3 (0.0-0.4); Eosinophils % (Auto) 1.4 % (0.0-4.3); Hematocrit 36.9 % (30.3-42.9); Lymphocytes # (Auto) 1.1 K/mm3 (1.2-5.4); Lymphocytes % (Auto) 19.4 % (13.4-35.0); Mean Corpuscular HGB Conc 32 % (30-34); Mean Corpuscular Volume 93 fl (79-97); Monocytes # (Auto) 0.4 K/mm3 (0.0-0.8); Monocytes % (Auto) 7.7 % (0.0-7.3); Platelet Count 154 K/mm3 (140-440); Red Blood Count 3.97 M/mm3 (3.65-5.03); Red Cell Distribution Width 18.6 % (13.2-15.2)
[2020-01-04 15:45] LABS: RBC,Urine > 182.0 /HPF (0.0-6.0)
[2020-01-04 15:59] LABS: Alanine Aminotransferase 52 units/L (7-56); Albumin 3.7 g/dL (3.9-5); BUN/Creatinine Ratio 5; Blood Urea Nitrogen 4 mg/dL (7-17); Calcium 8.8 mg/dL (8.4-10.2); Hemolysis Index 6
[2020-01-04] MEDS ORDERED: cefTRIAXone/NS 1 GM/50 ML 1 GM/50 ML BAG IV ONE (16:29)
[2020-01-04] MEDS ORDERED: SODIUM CHLORIDE 0.9% 1000 ML 1,000 ML IV ONE (16:29)
[2020-01-04] MEDS ORDERED: HYOSCYAMINE SUBL 0.125 MG TAB SL ONE (16:29)
[2020-01-04] MEDS ORDERED: ONDANSETRON 4 MG/2 ML INJ IV ONE (16:29)
--- NOTE | 2020-01-04 17:35 | Emergency Department Report ---
ED Abdominal Pain HPI - General Chief Complaint: Abdominal Pain Stated Complaint: STOMACH PAINS Time Seen by Provider: 01/04/20 16:18 Source: patient Mode of arrival: Ambulatory Limitations: No Limitations - History of Present Illness Initial Comments: Patient is a 39-year-old female presents emergency room with complaints of generalized abdominal pain that began 2 days ago. She states that she has odor to her urine and dark urine and lower back pain. She states that she also has nausea vomiting and diarrhea. She states that her skin feels itchy but she does not have a rash. She states approximately 3 to 4 months ago she was diagnosed with a urinary tract infection but states that she did not complete her antibiotics. She denies any fever, hematochezia, hematemesis, melena. She has a past medical history of asthma. No allergies to medications. She endorses tobacco use. She states that she is on methadone for previous opioid abuse. She states that she is also a heavy alcohol drinker. She states that she has drank alcohol for approximately the last 5 years. She states that she drinks 7 to 8 bottles of 40 ounces of beer a day. - Related Data Home Medications Medication Instructions Recorded Confirmed Last Taken Famotidine [Pepcid] 20 mg PO BID 01/02/18 01/02/18 01/02/18 05:00 20 Vit-Fe Fumar-FA [ 1 tab PO QDAY 01/02/18 01/02/18 01/02/18 05:00 Vitamin] 1 Simethicone [Bicarsim Forte] 125 mg PO PRN 01/02/18 01/02/18 01/02/18 05:00 125 Previous Rx's Medication Instructions Recorded Last Taken Type Ferrous Sulfate [Feosol 325 MG tab] 325 mg PO BID #60 tablet 01/03/18 Unknown Rx Vit-Fe Fumar-FA [ 1 each PO QDAY #30 tablet 01/03/18 Unknown Rx Vitamin] Erythromycin [Erythromycin Ophth 0.5 inch OP QID 7 Days #1 tube 11/17/18 Unknown Rx Oint] Albuterol Sulfate [Proventil Hfa] 2 puff INHALATION Q4HR PRN #1 01/17/19 Unknown Rx hfa.aer.ad Cyclobenzaprine [Flexeril] 10 mg PO QHS PRN #15 tablet 01/17/19 Unknown Rx Ibuprofen [Motrin 800 MG tab] 800 mg PO Q8H PRN #25 tablet 01/17/19 Unknown Rx Albuterol Sulfate [Proair 90 mcg IH Q6H PRN #1 aer.pow.ba 08/21/19 Unknown Rx Respiclick] Naproxen 500 mg PO Q12H PRN #10 tablet 08/21/19 Unknown Rx Ondansetron [Zofran ODT TAB] 8 mg PO Q8HR PRN #12 tab.rapdis 08/21/19 Unknown Rx Sulfamethoxazole/Trimethoprim 1 each PO BID 7 Days #14 tablet 08/21/19 Unknown Rx [Bactrim DS TAB] Ciprofloxacin HCl [Ciprofloxacin 500 mg PO BID 10 Days #20 tab 01/04/20 Unknown Rx TAB] Hyoscyamine Subl [Levsin Sl 0.125 0.125 mg SL Q6HR PRN #10 tab 01/04/20 Unknown Rx TAB] Promethazine [Phenergan] 25 mg PO Q8HR PRN #10 tab 01/04/20 Unknown Rx Allergies Allergy/AdvReac Type Severity Reaction Status Date / Time iodine Allergy Rash Verified 01/04/20 14:54 shellfish derived Allergy Itching Verified 01/04/20 14:54 ED Review of Systems ROS: Stated complaint: STOMACH PAINS Other details as noted in HPI Comment: All other systems reviewed and negative ED Past Medical Hx - Past Medical History Previous Medical History?: Yes Hx Hypertension: No Hx Congestive Heart Failure: No Hx Diabetes: No Hx Deep Vein Thrombosis: No Hx Renal Disease: No Hx Sickle Cell Disease: No Hx Headaches / Migraines: Yes Hx Seizures: No Hx Asthma: Yes (uses inhaler) Hx COPD: No Hx HIV: No Additional medical history: DRUG ADDICTION 2 YEARS AGO. FIBROID - Surgical History Past Surgical History?: Yes Hx Cholecystectomy: Yes Hx Appendectomy: Yes Additional Surgical History: D&C. liver biopsy - Social History Smoking Status: Current Every Day Smoker Substance Use Type: Alcohol - Medications Home Medications: Home Medications Medication Instructions Recorded Confirmed Last Taken Type Famotidine [Pepcid] 20 mg PO BID 01/02/18 01/02/18 01/02/18 05:00 History 20 Vit-Fe Fumar-FA [ 1 tab PO QDAY 01/02/18 01/02/18 01/02/18 05:00 History Vitamin] 1 Simethicone [Bicarsim Forte] 125 mg PO PRN 01/02/18 01/02/18 01/02/18 05:00 History 125 Ferrous Sulfate [Feosol 325 MG tab] 325 mg PO BID #60 tablet 01/03/18 Unknown Rx Vit-Fe Fumar-FA [ 1 each PO QDAY #30 tablet 01/03/18 Unknown Rx Vitamin] Erythromycin [Erythromycin Ophth 0.5 inch OP QID 7 Days #1 tube 11/17/18 Unk nown Rx Oint] Albuterol Sulfate [Proventil Hfa] 2 puff INHALATION Q4HR PRN #1 01/17/19 Unkn own Rx hfa.aer.ad Cyclobenzaprine [Flexeril] 10 mg PO QHS PRN #15 tablet 01/17/19 Unknown Rx Ibuprofen [Motrin 800 MG tab] 800 mg PO Q8H PRN #25 tablet 01/17/19 Unknown Rx Albuterol Sulfate [Proair 90 mcg IH Q6H PRN #1 aer.pow.ba 08/21/19 Unknown Rx Respiclick] Naproxen 500 mg PO Q12H PRN #10 tablet 08/21/19 Unknown Rx Ondansetron [Zofran ODT TAB] 8 mg PO Q8HR PRN #12 tab.rapdis 08/21/19 Unknown Rx Sulfamethoxazole/Trimethoprim 1 each PO BID 7 Days #14 tablet 08/21/19 Unknown Rx [Bactrim DS TAB] Ciprofloxacin HCl [Ciprofloxacin 500 mg PO BID 10 Days #20 tab 01/04/20 Unknown Rx TAB] Hyoscyamine Subl [Levsin Sl 0.125 0.125 mg SL Q6HR PRN #10 tab 01/04/20 Unknown Rx TAB] Promethazine [Phenergan] 25 mg PO Q8HR PRN #10 tab 01/04/20 Unknown Rx ED Physical Exam - General Limitations: No Limitations General appearance: alert, in no apparent distress - Head Head exam: Present: atraumatic, normocephalic - ENT ENT exam: Present: mucous membranes moist - Respiratory Respiratory exam: Present: normal lung sounds bilaterally. Absent: respiratory distress, wheezes, rales, rhonchi, stridor, chest wall tenderness, accessory muscle use, decreased breath sounds, prolonged expiratory - Cardiovascular Cardiovascular Exam: Present: regular rate, normal rhythm, normal heart sounds. Absent: systolic murmur, diastolic murmur, rubs, gallop - GI/Abdominal GI/Abdominal exam: Present: soft, tenderness (generalized), normal bowel sounds. Absent: distended, guarding, rebound, rigid - Neurological Exam Neurological exam: Present: alert, oriented X3 - Psychiatric Psychiatric exam: Present: normal affect, normal mood - Skin Skin exam: Present: warm, dry, intact. Absent: rash ED Course Vital Signs 01/04/20 14:57 Temperature 98.6 F Pulse Rate 101 H Respiratory 18 Rate Blood Pressure 137/94 O2 Sat by Pulse 98 Oximetry - Consultations Consultation #1: 01/04/20 18:[address] Gipson, GI regarding pt presentation, lab results, and CT results, he advised that pt could follow up as an outpatient for MRCP, advised to place pt on ciprofloxacin, states pt does not need to be admitted ED Medical Decision Making - Lab Data Result diagrams: 01/04/20 15:22 01/04/20 15:22 Lab Results 01/04/20 01/04/20 01/04/20 Range/Units 15:22 15:22 15:22 WBC 5.8 (4.5-11.0) K/mm3 RBC 3.97 (3.65-5.03) M/mm3 Hgb 12.0 (10.1-14.3) gm/dl Hct 36.9 (30.3-42.9) % MCV 93 (79-97) fl MCH 30 (28-32) pg MCHC 32 (30-34) % RDW 18.6 H (13.2-15.2) % Plt Count 154 (140-440) K/mm3 Lymph % (Auto) 19.4 (13.4-35.0) % Humphreys % (Auto) 7.7 H (0.0-7.3) % Eos % (Auto) 1.4 (0.0-4.3) % Baso % (Auto) 0.7 (0.0-1.8) % Lymph # 1.1 L (1.2-5.4) K/mm3 Humphreys # 0.4 (0.0-0.8) K/mm3 Eos # 0.1 (0.0-0.4) K/mm3 Baso # 0.0 (0.0-0.1) K/mm3 Seg Neutrophils % 70.8 H (40.0-70.0) % Seg Neutrophils # 4.1 (1.8-7.7) K/mm3 Sodium 137 (137-145) mmol/L Potassium 4.0 (3.6-5.0) mmol/L Chloride 100.3 (98-107) mmol/L Carbon Dioxide 24 (22-30) mmol/L Anion Gap 17 mmol/L BUN 4 L (7-17) mg/dL Creatinine 0.8 (0.6-1.2) mg/dL Estimated GFR > 60 ml/min BUN/Creatinine Ratio 5 % Glucose 118 H (65-100) mg/dL Calcium 8.8 (8.4-10.2) mg/dL Total Bilirubin 1.30 H (0.1-1.2) mg/dL AST 48 H (5-40) units/L ALT 52 (7-56) units/L Alkaline Phosphatase 153 H (35-129) units/L Total Protein 7.4 (6.3-8.2) g/dL Albumin 3.7 L (3.9-5) g/dL Albumin/Globulin Ratio 1.0 % Lipase 13 (13-60) units/L HCG, Qual Negative (Negative) Urine Color (Yellow) Urine Turbidity (Clear) Urine pH (5.0-7.0) Ur Specific Trail (1.003-1.030) Urine Protein (Negative) mg/dL Urine Glucose (UA) (Negative) mg/dL Urine Ketones (Negative) mg/dL Urine Blood (Negative) Urine Nitrite (Negative) Urine Bilirubin (Negative) Urine Urobilinogen (<2.0) mg/dL Ur Leukocyte Esterase (Negative) Urine WBC (Auto) (0.0-6.0) /HPF Urine RBC (Auto) (0.0-6.0) /HPF U Epithel Cells (Auto) (0-13.0) /HPF Urine Mucus /HPF Urine Yeast (Budding) /HPF 01/04/20 Range/Units Unknown WBC (4.5-11.0) K/mm3 RBC (3.65-5.03) M/mm3 Hgb (10.1-14.3) gm/dl Hct (30.3-42.9) % MCV (79-97) fl MCH (28-32) pg MCHC (30-34) % RDW (13.2-15.2) % Plt Count (140-440) K/mm3 Lymph % (Auto) (13.4-35.0) % Humphreys % (Auto) (0.0-7.3) % Eos % (Auto) (0.0-4.3) % Baso % (Auto) (0.0-1.8) % Lymph # (1.2-5.4) K/mm3 Humphreys # (0.0-0.8) K/mm3 Eos # (0.0-0.4) K/mm3 Baso # (0.0-0.1) K/mm3 Seg Neutrophils % (40.0-70.0) % Seg Neutrophils # (1.8-7.7) K/mm3 Sodium (137-145) mmol/L Potassium (3.6-5.0) mmol/L Chloride (98-107) mmol/L Carbon Dioxide (22-30) mmol/L Anion Gap mmol/L BUN (7-17) mg/dL Creatinine (0.6-1.2) mg/dL Estimated GFR ml/min BUN/Creatinine Ratio % Glucose (65-100) mg/dL Calcium (8.4-10.2) mg/dL Total Bilirubin (0.1-1.2) mg/dL AST (5-40) units/L ALT (7-56) units/L Alkaline Phosphatase (35-129) units/L Total Protein (6.3-8.2) g/dL Albumin (3.9-5) g/dL Albumin/Globulin Ratio % Lipase (13-60) units/L HCG, Qual (Negative) Urine Color Martha (Yellow) Urine Turbidity Slightly-cloudy (Clear) Urine pH 5.0 (5.0-7.0) Ur Specific Trail 1.020 (1.003-1.030) Urine Protein 100 mg/dl (Negative) mg/dL Urine Glucose (UA) Neg (Negative) mg/dL Urine Ketones Tr (Negative) mg/dL Urine Blood Lg (Negative) Urine Nitrite Neg (Negative) Urine Bilirubin Neg (Negative) Urine Urobilinogen 2.0 (<2.0) mg/dL Ur Leukocyte Esterase Tr (Negative) Urine WBC (Auto) 67.0 H (0.0-6.0) /HPF Urine RBC (Auto) > 182.0 (0.0-6.0) /HPF U Epithel Cells (Auto) 3.0 (0-13.0) /HPF Urine Mucus 1+ /HPF Urine Yeast (Budding) Few /HPF - Radiology Data Radiology results: report reviewed CT ABDO CT ABDOMEN AND PELVIS WITH CONTRAST INDICATION / CLINICAL INFORMATION: abd pain, n/v/d, elevated LFTs, dysuria. TECHNIQUE: Axial CT images were obtained through the abdomen and pelvis after 100 cc of Omni [address] scans at this location are performed using CT dose reduction for ALARA by means of automated exposure control. COMPARISON: None available. FINDINGS: LOWER CHEST: No significant abnormality. LIVER: No significant abnormality. GALLBLADDER: Cholecystectomy status. BILE DUCTS: Marked dilatation of the common bile duct measuring up to 2.1 cm as well as mild- moderate intrahepatic biliary ductal dilatation. Intrahepatic bile duct measures up to 7 mm. No definite intrinsic or extrinsic obstructing lesion. PANCREAS: No significant abnormality. SPLEEN: No significant abnormality. ADRENALS: No significant abnormality. RIGHT KIDNEY / URETER: No significant abnormality. LEFT KIDNEY / URETER: No significant abnormality. STOMACH / SMALL BOWEL: No significant abnormality. COLON: No significant abnormality. APPENDIX: Not definitively visualized. No regional inflammatory change. PERITONEUM: No free fluid. No free air. No fluid collection. LYMPH NODES: No significant adenopathy. AORTA / ARTERIES: No significant abnormality. IVC / VEINS: No significant abnormality. URINARY BLADDER: No significant abnormality. REPRODUCTIVE ORGANS: Small 1.5 cm left adnexal cyst. ADDITIONAL FINDINGS: None. SKELETAL SYSTEM: No significant abnormality. IMPRESSION: 1. Marked extrahepatic biliary ductal dilatation with mild-moderate intrahepatic biliary ductal dilatation. No definite intrinsic or extrinsic obstructing lesion. Recommend GI consultation with consideration for ERCP or MRCP. 2. Cholecystectomy status. IMPRESSION: 1. No significant abnormality. Signer Name: Sergey Hannah MD Signed: 01/04/2020 6:20 PM Workstation Name: [id number] Transcribed By: Dictated By: SERGEY HANNAH III Electronically Authenticated By: SERGEY HANNAH III Signed Date/Time: 01/04/201819 DD/ 12 TD/TT: - Medical Decision Making Patient is a 39-year-old female presents emergency room with complaints of generalized abdominal pain that began 2 days ago. She states that she has odor to her urine and dark urine and lower back pain. She states that she also has nausea vomiting and diarrhea. She states that her skin feels itchy but she does not have a rash. She states approximately 3 to 4 months ago she was diagnosed with a urinary tract infection but states that she did not complete her antibiotics. She denies any fever, hematochezia, hematemesis, melena. She has a past medical history of asthma. No allergies to medications. She endorses tobacco use. She states that she is on methadone for previous opioid abuse. She states that she is also a heavy alcohol drinker. She states that she has drank alcohol for approximately the last 5 years. She states that she drinks 7 to 8 bottles of 40 ounces of beer a day. Vitals are stable. On exam patient has generalized abdominal tenderness to palpation, no guarding, no rebound, no rigidity, no peritoneal signs, normal bowel sounds. Labs significant for mildly elevated bilirubin, AST, alk phos. UA without evidence of UTI. CT abdomen pelvis with IV contrast shows: 1. Marked extrahepatic biliary ductal dilatation with mild-moderate intrahepatic biliary ductal dilatation. No definite intrinsic or extrinsic obstructing lesion. Recommend GI consultation with consideration for ERCP or MRCP. 2. Cholecystectomy status. Patient given 1 L fluids, ceftriaxone, Levsin, Zofran and symptoms improved and patient was feeling better.spoke with KRISTI Mcnally regarding pt presentation, lab results, and CT results, he advised that pt could follow up as an outpatient for MRCP, advised to place pt on ciprofloxacin, states pt does not need to be admitted. Patient given prescription for Cipro, Phenergan, Levsin. Advised patient Please take medication as prescribed. Please eat a bland liquid diet and slowly advance your diet as tolerated. Please decrease your alcohol use over time and then stop drinking alcohol completely. Follow-up with a GI doctor, I have given you your CT report, please take this to the GI doctor. Your CT as abnormal and needs further work-up by GI. Follow-up with your primary care doctor. Return to emergency room immediately for any new or worsening symptoms. - Differential Diagnosis Obstruction, mass, pancreatitis, hepatitis, cirrhosis, choledocholithiasis Critical care attestation.: If time is entered above; I have spent that time in minutes in the direct care of this critically ill patient, excluding procedure time. ED Disposition Clinical Impression: Nausea vomiting and diarrhea, Elevated LFTs, Alcohol abuse, Common bile duct dilatation Abdominal pain Qualifiers: Abdominal location: generalized Qualified Code(s): R10.84 - Generalized abdominal pain UTI (urinary tract infection) Qualifiers: Urinary tract infection type: acute cystitis Hematuria presence: with hematuria Qualified Code(s): N30.01 - Acute cystitis with hematuria Disposition: TO HOME OR SELFCARE Is pt being admited?: No Does the pt Need Aspirin: No Condition: Stable Instructions: Urinary Tract Infection in Women (ED), Abuse of Alcohol (ED), Acute Nausea and Vomiting (ED), Abdominal Pain (ED) Additional Instructions: Please take medication as prescribed. Please eat a bland liquid diet and slowly advance your diet as tolerated. Please decrease your alcohol use over time and then stop drinking alcohol completely. Follow-up with a GI doctor, I have given you your CT report, please take this to the GI doctor. Your CT as abnorm al and needs further work-up by GI. Follow-up with your primary care doctor. Return to emergency room immediately for any new or worsening symptoms. Prescriptions: Ciprofloxacin HCl [Ciprofloxacin TAB] 500 mg PO BID 10 Days #20 tab Hyoscyamine Subl [Levsin Sl 0.125 TAB] 0.125 mg SL Q6HR PRN #10 tab PRN Reason: abdominal pain/diarrhea Promethazine [Phenergan] 25 mg PO Q8HR PRN #10 tab PRN Reason: Nausea And Vomiting Referrals: PRIMARY CARE, [Primary Care Provider] - 2-3 Days [facility] [Provider Group] - 2-3 Days Time of Disposition: 18:51 Print Language: CHADIAN
--- NOTE | 2020-01-04 18:25 | Cat Scan Report ---
CT ABDO CT ABDOMEN AND PELVIS WITH CONTRAST INDICATION / CLINICAL INFORMATION: abd pain, n/v/d, elevated LFTs, dysuria. TECHNIQUE: Axial CT images were obtained through the abdomen and pelvis after 100 cc of Omni [address] scans at this location are performed using CT dose reduction for ALARA by means of automated ex posure control. COMPARISON: None available. FINDINGS: LOWER CHEST: No significant abnormality. LIVER: No significant abnormality. GALLBLADDER: Cholecystectomy status. BILE DUCTS: Marked dilatation of the common bile duct measuring up to 2.1 cm as well as mild-moderate intrahepatic biliary ductal dilatation. Intrahepatic bile duct measures up to 7 mm. No definite intr insic or extrinsic obstructing lesion. PANCREAS: No significant abnormality. SPLEEN: No significant abnormality. ADRENALS: No significant abnormality. RIGHT KIDNEY / URETER: No significant abnormality. LEFT KIDNEY / URETER: No significant abnormality. STOMACH / SMALL BOWEL: No significant abnormality. COLON: No significant abnormality. APPENDIX: Not definitively visualized. No regional inflammatory change. PERITONEUM: No free fluid. No free air. No fluid collection. LYMPH NODES: No significant adenopathy. AORTA / ARTERIES: No significant abnormality. IVC / VEINS: No significant abnormality. URINARY BLADDER: No significant abnormality. REPRODUCTIVE ORGANS: Small 1.5 cm left adnexal cyst. ADDITIONAL FINDINGS: None. SKELETAL SYSTEM: No significant abnormality. IMPRESSION: 1. Marked extrahepatic biliary ductal dilatation with mild-moderate intrahepatic biliary ductal dilat ation. No definite intrinsic or extrinsic obstructing lesion. Recommend GI consultation with consider ation for ERCP or MRCP. 2. Cholecystectomy status. IMPRESSION: 1. No significant abnormality. Signer Name: Sergey Hannah MD Signed: 01/04/2020 6:20 PM Workstation Name: [id number]
== END 2020-01-04 19:01 | disposition home or self-care (01) ==
LOC: ED 14:52
DX: R11.2 Nausea with vomiting, unspecified (principal); K83.8 Other specified diseases of biliary tract; N39.0 Urinary tract infection, site not specified; F10.10 Alcohol abuse, uncomplicated; G43.909 Migraine, unspecified, not intractable, without status migrainosus; J45.909 Unspecified asthma, uncomplicated; F17.200 Nicotine dependence, unspecified, uncomplicated; Z90.49 Acquired absence of other specified parts of digestive tract; Z98.890 Other specified postprocedural states; Z79.1 Long term (current) use of non-steroidal anti-inflammatories (NSAID); Z79.899 Other long term (current) drug therapy; Z91.013 Allergy to seafood; Z88.8 Allergy status to other drugs, medicaments and biological substances
CPT/HCPCS: 36415; 74177; 80053; 81001; 83690; 84703; 85025; 87086; J0696; J2405; J7030; Q9967; 96361; 96365; 96375

== ENCOUNTER 2020-04-02 19:06 | Emergency (ER) | payer MEDICAID | END 2020-04-02 19:28 | disposition left against medical advice (07) | LOC: ED 19:06 | DX: M79.603 Pain in arm, unspecified (principal); M79.606 Pain in leg, unspecified; Z53.21 Procedure and treatment not carried out due to patient leaving prior to being seen by health care provider ==

== ENCOUNTER 2020-08-23 15:22 | Emergency (ER) | payer MEDICAID ==
[2020-08-23] MEDS ORDERED: ONDANSETRON 4 MG/2 ML INJ IV ONE (16:35)
[2020-08-23] MEDS ORDERED: SODIUM CHLORIDE 0.9% 1000 ML 1,000 ML IV ONE (16:35)
[2020-08-23] MEDS ORDERED: MORPHINE 4 MG/1 ML INJ IV ONE (16:36)
--- NOTE | 2020-08-23 16:41 | Event Note ---
ED Screening Note Date of service: 08/23/20 Time: 16:38 ED Screening Note: -year-old -[place] female presents to the emergency room for epigastric abdominal pain. Patient feels it is her pancreatitis is flaring up. Patient at home believe admits that she is still drinking and is asking for help. Patient admits to nausea and vomiting. Menstrual cycle is late as it was beginning of last month. She feels there is a possibility of being . This initial assessment/diagnostic orders/clinical plan/treatment(s) is/are subject to change based on patients health status, clinical progression and re- assessment by fellow clinical providers in the ED. Further treatment and workup at subsequent clinical providers discretion. Patient/guardian urged not to elope from the ED as their condition may be serious if not clinically assessed and managed. Initial orders include:
[2020-08-23 17:01] LABS: Basophils % (Auto) 0.5 % (0.0-1.8); Eosinophils % (Auto) 0.4 % (0.0-4.3); Hematocrit 40.2 % (30.3-42.9); Hemoglobin 13.3 gm/dl (10.1-14.3); Lymphocytes # (Auto) 0.9 K/mm3 (1.2-5.4); Lymphocytes % (Auto) 14.8 % (13.4-35.0); Mean Corpuscular HGB Conc 33 % (30-34); Mean Corpuscular Volume 93 fl (79-97); Monocytes # (Auto) 0.3 K/mm3 (0.0-0.8); Monocytes % (Auto) 5.6 % (0.0-7.3); Platelet Count 160 K/mm3 (140-440); Red Cell Distribution Width 18.5 % (13.2-15.2)
[2020-08-23 17:16] LABS: Alanine Aminotransferase 39 units/L (7-56); Albumin 3.9 g/dL (3.9-5); BUN/Creatinine Ratio 6; Blood Urea Nitrogen 5 mg/dL (7-17); Calcium 8.6 mg/dL (8.4-10.2); Hemolysis Index 16
[2020-08-23] MEDS ORDERED: FAMOTIDINE 20 MG/2 ML INJ IV ONE (19:30)
[2020-08-23] MEDS ORDERED: LORazepam 2 MG/ML VIAL IV ONE ×4 (19:35→23:15)
--- NOTE | 2020-08-23 19:41 | Emergency Department Report ---
ED Abdominal Pain HPI - General Chief Complaint: Abdominal Pain Stated Complaint: ABD PAIN Time Seen by Provider: 08/23/20 19:27 Source: patient, EMS Mode of arrival: Ambulatory Limitations: No Limitations - History of Present Illness Initial Comments: 40-year-old female the past medical history of alcohol abuse, drug abuse currently on methadone, alcohol just pancreatitis, previous cholecystectomy and appendectomy presents to the hospital complaints of epigastric pain since this a.m. Pain is in epigastric area radiates to the chest and left side of back, rated 6/10 in intensity, worse with movement and palpation. Positive associated nausea, vomiting, and diarrhea. She denies hematemesis, hematochezia, or coffee-ground emesis. Patient drinks approximately 6 cans of beer daily with history of alcohol withdrawal tremors. Patient denies history of alcohol withdrawal seizures and states she has not gone that long without drinking. Last drink was yesterday. History of opioid drug abuse currently on methadone 40 mg daily. - Related Data Home Medications Medication Instructions Recorded Confirmed Last Taken Famotidine [Pepcid] 20 mg PO BID 01/02/18 01/02/18 01/02/18 05:00 20 Vit-Fe Fumar-FA [ 1 tab PO QDAY 01/02/18 01/02/18 01/02/18 05:00 Vitamin] 1 Simethicone [Bicarsim Forte] 125 mg PO PRN 01/02/18 01/02/18 01/02/18 05:00 125 Previous Rx's Medication Instructions Recorded Last Taken Type Ferrous Sulfate [Feosol 325 MG tab] 325 mg PO BID #60 tablet 01/03/18 Unknown Rx Vit-Fe Fumar-FA [ 1 each PO QDAY #30 tablet 01/03/18 Unknown Rx Vitamin] Erythromycin [Erythromycin Ophth 0.5 inch OP QID 7 Days #1 tube 11/17/18 Unknown Rx Oint] Albuterol Sulfate [Proventil Hfa] 2 puff INHALATION Q4HR PRN #1 01/17/19 Unknown Rx hfa.aer.ad Cyclobenzaprine [Flexeril] 10 mg PO QHS PRN #15 tablet 01/17/19 Unknown Rx Ibuprofen [Motrin 800 MG tab] 800 mg PO Q8H PRN #25 tablet 01/17/19 Unknown Rx Albuterol Sulfate [Proair 90 mcg IH Q6H PRN #1 aer.pow.ba 08/21/19 Unknown Rx Respiclick] Naproxen 500 mg PO Q12H PRN #10 tablet 08/21/19 Unknown Rx Ondansetron [Zofran ODT TAB] 8 mg PO Q8HR PRN #12 tab.rapdis 08/21/19 Unknown Rx Sulfamethoxazole/Trimethoprim 1 each PO BID 7 Days #14 tablet 08/21/19 Unknown Rx [Bactrim DS TAB] Ciprofloxacin HCl [Ciprofloxacin 500 mg PO BID 10 Days #20 tab 01/04/20 Unknown Rx TAB] Hyoscyamine Subl [Levsin Sl 0.125 0.125 mg SL Q6HR PRN #10 tab 01/04/20 Unknown Rx TAB] Promethazine [Phenergan] 25 mg PO Q8HR PRN #10 tab 01/04/20 Unknown Rx Famotidine [Pepcid] 20 mg PO BID #20 tablet 08/23/20 Unknown Rx Multivitamin with Folic Acid [[facility]vs 400 mcg PO DAILY #30 tablet 08/23/20 Unknown Rx One Daily Essential Tablet] Ondansetron [Zofran Odt] 4 mg PO Q8HR PRN #20 tab.rapdis 08/23/20 Unknown Rx chlordiazePOXIDE [Librium] 25 mg PO Q6H #40 capsule 08/23/20 Unknown Rx Allergies Allergy/AdvReac Type Severity Reaction Status Date / Time iodine Allergy Rash Verified 01/04/20 14:54 shellfish derived Allergy Itching Verified 01/04/20 14:54 ED Review of Systems ROS: Stated complaint: ABD PAIN Other details as noted in HPI Comment: All other systems reviewed and negative ED Past Medical Hx - Past Medical History Previous Medical History?: Yes Hx Hypertension: No Hx Congestive Heart Failure: No Hx Diabetes: No Hx Deep Vein Thrombosis: No Hx Renal Disease: No Hx Sickle Cell Disease: No Hx Headaches / Migraines: Yes Hx Seizures: No Hx Asthma: Yes (uses inhaler) Hx COPD: No Hx HIV: No Additional medical history: DRUG ADDICTION 2 YEARS AGO. FIBROID, Pancreatitis - Surgical History Past Surgical History?: Yes Hx Cholecystectomy: Yes Hx Appendectomy: Yes Additional Surgical History: D&C. liver biopsy - Social History Smoking Status: Current Every Day Smoker Substance Use Type: Alcohol - Medications Home Medications: Home Medications Medication Instructions Recorded Confirmed Last Taken Type Famotidine [Pepcid] 20 mg PO BID 01/02/18 01/02/18 01/02/18 05:00 History 20 Vit-Fe Fumar-FA [ 1 tab PO QDAY 01/02/18 01/02/18 01/02/18 05:00 History Vitamin] 1 Simethicone [Bicarsim Forte] 125 mg PO PRN 01/02/18 01/02/18 01/02/18 05:00 History 125 Ferrous Sulfate [Feosol 325 MG tab] 325 mg PO BID #60 tablet 01/03/18 Unknown Rx Vit-Fe Fumar-FA [ 1 each PO QDAY #30 tablet 01/03/18 Unknown Rx Vitamin] Erythromycin [Erythromycin Ophth 0.5 inch OP QID 7 Days #1 tube 11/17/18 Unknown Rx Oint] Albuterol Sulfate [Proventil Hfa] 2 puff INHALATION Q4HR PRN #1 01/17/19 Unknown Rx hfa.aer.ad Cyclobenzaprine [Flexeril] 10 mg PO QHS PRN #15 tablet 01/17/19 Unknown Rx Ibuprofen [Motrin 800 MG tab] 800 mg PO Q8H PRN #25 tablet 01/17/19 Unknown Rx Albuterol Sulfate [Proair 90 mcg IH Q6H PRN #1 aer.pow.ba 08/21/19 Unknown Rx Respiclick] Naproxen 500 mg PO Q12H PRN #10 tablet 08/21/19 Unknown Rx Ondansetron [Zofran ODT TAB] 8 mg PO Q8HR PRN #12 tab.rapdis 08/21/19 Unknown Rx Sulfamethoxazole/Trimethoprim 1 each PO BID 7 Days #14 tablet 08/21/19 Unknown Rx [Bactrim DS TAB] Ciprofloxacin HCl [Ciprofloxacin 500 mg PO BID 10 Days #20 tab 01/04/20 Unknown Rx TAB] Hyoscyamine Subl [Levsin Sl 0.125 0.125 mg SL Q6HR PRN #10 tab 01/04/20 Unknown Rx TAB] Promethazine [Phenergan] 25 mg PO Q8HR PRN #10 tab 01/04/20 Unknown Rx Famotidine [Pepcid] 20 mg PO BID #20 tablet 08/23/20 Unknown Rx Multivitamin with Folic Acid [Cvs 400 mcg PO DAILY #30 tablet 08/23/20 Unknown Rx One Daily Essential Tablet] Ondansetron [Zofran Odt] 4 mg PO Q8HR PRN #20 tab.rapdis 08/23/20 Unknown Rx chlordiazePOXIDE [Librium] 25 mg PO Q6H #40 capsule 08/23/20 Unknown Rx ED Physical Exam - General Limitations: No Limitations - Other Other exam information: General: No acute distress Head: Atraumatic Eyes: normal appearance ENT: Moist mucous membranes Neck: Normal appearance, no midline tenderness Chest: Clear to auscultation bilaterally CV: Tachycardic regular rhythm Abdomen: Soft, normal bowel sounds, epigastric tenderness, left upper quadrant tenderness, right upper quadrant tenderness, nondistended, no rebound or guarding Back: Normal inspection Extremity: Normal inspection, full range of motion Neuro: Alert O x 3, no facial asymmetry, speech clear, no gross motor sensory deficit, resting tremor Psych: Appropriate behavior Skin: No rash ED Course Vital Signs 08/23/20 08/23/20 08/23/20 16:05 19:30 20:05 Temperature 98.9 F Pulse Rate 107 H 112 H Respiratory 15 20 20 Rate Blood Pressure 125/93 O2 Sat by Pulse 98 99 Oximetry 08/23/20 08/23/20 08/23/20 20:10 20:30 21:01 Temperature Pulse Rate 119 H Respiratory 28 H Rate Blood Pressure 108/84 123/74 123/74 O2 Sat by Pulse 75 L 100 Oximetry 08/23/20 08/23/20 08/23/20 21:31 22:05 22:31 Temperature Pulse Rate 102 H 106 H 87 Respiratory 18 22 20 Rate Blood Pressure 123/74 125/89 125/89 O2 Sat by Pulse 100 99 99 Oximetry 08/23/20 23:01 Temperature Pulse Rate 86 Respiratory 15 Rate Blood Pressure 125/89 O2 Sat by Pulse 100 Oximetry - Reevaluation(s) Reevaluation #1: 08/23/20 23:16 Patient's heart rate improving with Ativan and IV fluids. Patient reports feeling better. Shared decision making with patient regarding admission versus discharge. I Expressed my concern of alcohol withdrawal if she cannot tolerate alcohol intake or p.o. intake. Patient states she is feeling better and tolerating p.o. intake in the ED. She prefers to try to go home. I Have prescribed a Librium taper but informed patient if she did continues to have tremors despite taking the Librium take her she would need to drink alcohol until tremors go away. If she continues to have alcohol withdrawal symptoms or unable to tolerate p.o. intake she would need to return to the ER for further treatment. Otherwise she will be provided a Librium taper and outpatient alcohol detox referral and additional medications for her symptoms. ED Medical Decision Making - Lab Data Result diagrams: 08/23/20 16:42 08/23/20 16:42 - Radiology Data Radiology results: report reviewed CT ABDOMEN AND PELVIS WITH CONTRAST INDICATION / CLINICAL INFORMATION: epigastric pain, hx of EtOH pancreatitis. TECHNIQUE: Axial CT images were obtained through the abdomen and pelvis after 100 mL Omnipaque [address] scans at this location are performed using CT dose reduction for ALARA by means of automated exposure control. COMPARISON: CT dated 01/04/20 FINDINGS: LOWER CHEST: No significant abnormality. LIVER: Liver is enlarged and hypodense characteristic of fatty infiltration, unchanged. GALLBLADDER: Cholecystectomy. BILE DUCTS: Dilated extra hepatic common bile duct is slight decrease in maximal size today measuring 1.4 cm, previously 2.1 cm. No bile duct stones. PANCREAS: Pancreatic atrophy but no acute abnormality. No peripancreatic inflammation. SPLEEN: No significant abnormality. ADRENALS: No significant abnormality. RIGHT KIDNEY / URETER: No significant abnormality. LEFT KIDNEY / URETER: No significant abnormality. STOMACH / SMALL BOWEL: No significant abnormality. COLON: No significant abnormality. APPENDIX: Appendectomy. PERITONEUM: No free fluid. No free air. No fluid collection. LYMPH NODES: No significant adenopathy. AORTA / ARTERIES: No significant abnormality. IVC / VEINS: No significant abnormality. URINARY BLADDER: No significant abnormality. REPRODUCTIVE ORGANS: No significant abnormality. ADDITIONAL FINDINGS: None. SKELETAL SYSTEM: No significant abnormality. IMPRESSION: 1. No inflammatory process or bowel obstruction. 2. No CT evidence for acute pancreatitis. 3. Hepatic steatosis, unchanged. 4. Dilated extra hepatic common bile duct with interval improvement since the prior study. No common duct stones. - Medical Decision Making Patient's heart rate improving with Ativan and IV fluids. Patient reports feeling better. Shared decision making with patient regarding admission versus discharge. I Expressed my concern of alcohol withdrawal if she cannot tolerate alcohol intake or p.o. intake. Patient states she is feeling better and tolerating p.o. intake in the ED. She prefers to try to go home. I Have prescribed a Librium taper but informed patient if she did continues to have tremors despite taking the Librium take her she would need to drink alcohol until tremors go away. If she continues to have alcohol withdrawal symptoms or unable to tolerate p.o. intake she would need to return to the ER for further treatment. Otherwise she will be provided a Librium taper and outpatient alcohol detox referral and additional medications for her symptoms. Critical Care Time: No Critical care attestation.: If time is entered above; I have spent that time in minutes in the direct care of this critically ill patient, excluding procedure time. ED Disposition Clinical Impression: Nausea and vomiting, Epigastric pain, Methadone use, Alcohol dependence, Dehydration Disposition: DC-01 TO HOME OR SELFCARE Is pt being admited?: No Does the pt Need Aspirin: No Condition: Stable Instructions: Abdominal Pain (ED), Alcohol Abuse and Dependence Information, Adult, Nausea and Vomiting, Adult Additional Instructions: Take the medication as prescribed. Follow-up with your doctor or doctor/clinic provided. Return if symptoms worsen as indicated by your discharge instructions. Please refer to the resources provided for outpatient help with alcohol detox. Please note you cannot quit cold turkey as discussed due to risk of alcohol withdrawal symptoms. If you develop persistent nausea vomiting and unable to take anything by mouth or significant tremors not improved with medic ations or alcohol please return to the ER for treatment. SUBSTANCE ABUSE PROGRAMS: [facility]: Location: [place], [place] [employer] Address: [address] [place] [address] [facility]: Address: [address] [place] [address] [facility]: Address: [address] [place] [address] [facility]: Address: [address] [place] [address] Prescriptions: Multivitamin with Folic Acid [Cvs One Daily Essential Tablet] 400 mcg PO DAILY #30 tablet chlordiazePOXIDE [Librium] 25 mg PO Q6H #40 capsule Famotidine [Pepcid] 20 mg PO BID #20 tablet Ondansetron [Zofran Odt] 4 mg PO Q8HR PRN #20 tab.rapdis PRN Reason: Nausea And Vomiting Referrals: PRIMARY CAREMD [Primary Care Provider] - 3-5 Days [facility] [Provider Group] - 3-5 Days DENISSE DUKE MD [Staff Physician] - 3-5 Days KYLEIGH GARCIA MD [Staff Physician] - 3-5 Days (GI doctor ) Time of Disposition: 23:50
[2020-08-23] MEDS ORDERED: MORPHINE 4 MG/1 ML INJ ONE (19:51)
[2020-08-23] MEDS ORDERED: ONDANSETRON 4 MG/2 ML INJ ONE (19:51)
[2020-08-23] MEDS ORDERED: THIAMINE 100 MG, FOLIC ACID 1 MG, MULTIPLE VITAMIN INJ, ADULT 10 ML in SODIUM CHLORIDE ... IV ONE (20:00)
[2020-08-23] MEDS ORDERED: THIAMINE 100 MG, FOLIC ACID 1 MG in SODIUM CHLORIDE 0.9% 1000 ML 1,000 ML IV ONE (20:00)
--- NOTE | 2020-08-23 20:28 | Cat Scan Report ---
CT ABDOMEN AND PELVIS WITH CONTRAST INDICATION / CLINICAL INFORMATION: epigastric pain, hx of EtOH pancreatitis. TECHNIQUE: Axial CT images were obtained through the abdomen and pelvis after 100 mL Omnipaque [address] scans at this location are performed using CT dose reduction for ALARA by means of automated exposure control. COMPARISON: CT dated 01/04/20 FINDINGS: LOWER CHEST: No significant abnormality. LIVER: Liver is enlarged and hypodense characteristic of fatty infiltration, unchanged. GALLBLADDER: Cholecystectomy. BILE DUCTS: Dilated extra hepatic common bile duct is slight decrease in maximal size today measuring 1.4 cm, previously 2.1 cm. No bile duct stones. PANCREAS: Pancreatic atrophy but no acute abnormality. No peripancreatic inflammation. SPLEEN: No significant abnormality. ADRENALS: No significant abnormality. RIGHT KIDNEY / URETER: No significant abnormality. LEFT KIDNEY / URETER: No significant abnormality. STOMACH / SMALL BOWEL: No significant abnormality. COLON: No significant abnormality. APPENDIX: Appendectomy. PERITONEUM: No free fluid. No free air. No fluid collection. LYMPH NODES: No significant adenopathy. AORTA / ARTERIES: No significant abnormality. IVC / VEINS: No significant abnormality. URINARY BLADDER: No significant abnormality. REPRODUCTIVE ORGANS: No significant abnormality. ADDITIONAL FINDINGS: None. SKELETAL SYSTEM: No significant abnormality. IMPRESSION: 1. No inflammatory process or bowel obstruction. 2. No CT evidence for acute pancreatitis. 3. Hepatic steatosis, unchanged. 4. Dilated extra hepatic common bile duct with interval improvement since the prior study. No common duct stones. Signer Name: Raquel Gallagher MD Signed: 08/23/2020 8:23 PM Workstation Name: [id number]
[2020-08-23] MEDS ORDERED: SODIUM CHLORIDE 0.9% 1000 ML 1,000 ML ONE (21:10)
[2020-08-23 21:36] LABS: Bilirubin,Urine NEG (Negative); Blood,Urine NEG (Negative); Color,Urine Yellow (Yellow); Protein,Urine <15 mg/dL mg/dL (Negative); Urobilinogen,Urine < 2.0 mg/dL (<2.0)
[2020-08-24 00:11] VITALS: BP 132/84
--- NOTE | 2020-09-03 12:03 | Electrocardiograph Report ---
[facility] Test Date: 2020-08-23 Test Time: 20:34:49 Pat Name: CHIARA PATEL Department: Room: Gender: F [employer]: KAVIN : 1980 Requested By: ROLANDO BANEGAS Order Number: [id number] Reading MD: Baldomero Olivera Measurements Intervals [place] Rate: 92 P: 59 DC: 140 QRS: 44 QRSD: 82 T: 49 QT: 412 QTc: 509 Interpretive Statements Sinus rhythm No previous ECG available for comparison NONSPECIFIC REPOL ABNORMALITY, ANTERIOR LEADS Electronically Signed On 09-03-2020 12:03:24 EDT by Baldomero Olivera
== END 2020-08-24 00:23 | disposition home or self-care (01) ==
LOC: ED 15:22
DX: E86.0 Dehydration (principal); F19.10 Other psychoactive substance abuse, uncomplicated; F10.20 Alcohol dependence, uncomplicated; G43.909 Migraine, unspecified, not intractable, without status migrainosus; J45.909 Unspecified asthma, uncomplicated; F17.200 Nicotine dependence, unspecified, uncomplicated; Z79.899 Other long term (current) drug therapy; Z91.013 Allergy to seafood; Z88.8 Allergy status to other drugs, medicaments and biological substances
CPT/HCPCS: 36415; 74177; 80053; 81001; 83690; 83735; 84702; 85025; 93005; 96365; 96366; 96375; 96376; 99284; J2060; J2270; J2405; J3411; J7030; Q9967

== ENCOUNTER 2021-12-12 01:57 | Emergency (ER) | payer MEDICAID ==
[2021-12-12 09:41] LABS: Basophils # (Auto) 0.1 K/mm3 (0.0-0.1); Basophils % (Auto) 0.8 % (0.0-1.8); Eosinophils % (Auto) 0.2 % (0.0-4.3); Hemoglobin 14.5 gm/dl (10.1-14.3); Lymphocytes # (Auto) 1.6 K/mm3 (1.2-5.4); Lymphocytes % (Auto) 16.1 % (13.4-35.0); Mean Corpuscular HGB Conc 32 % (30-34); Mean Corpuscular Volume 97 fl (79-97); Monocytes # (Auto) 0.7 K/mm3 (0.0-0.8); Monocytes % (Auto) 7.5 % (0.0-7.3); Red Blood Count 4.65 M/mm3 (3.65-5.03); Red Cell Distribution Width 15.3 % (13.2-15.2)
[2021-12-12 09:46] LABS: Bilirubin,Urine NEG (Negative); Blood,Urine NEG (Negative); Color,Urine Yellow (Yellow); Urobilinogen,Urine < 2.0 mg/dL (<2.0)
[2021-12-12 10:01] LABS: Alanine Aminotransferase 41 units/L (7-56); Albumin 3.9 g/dL (3.9-5); Blood Urea Nitrogen 5 mg/dL (7-17); Calcium 9.2 mg/dL (8.4-10.2); Hemolysis Index 60
[2021-12-12 10:04] LABS: BUN/Creatinine Ratio 8
[2021-12-12] MEDS ORDERED: SODIUM CHLORIDE 0.9% 1000 ML 1,000 ML IV ONE ×2 (10:13→14:02)
[2021-12-12 10:16] LABS: Platelet Count 195 K/mm3 (140-440)
[2021-12-12] MEDS ORDERED: KETOROLAC 30 MG/1 ML INJ IV ONE (10:29)
[2021-12-12] MEDS ORDERED: ONDANSETRON 4 MG/2 ML INJ IV ONE ×2 (10:29→14:11)
--- NOTE | 2021-12-12 11:08 | XRay Report ---
ABDOMEN AP SUPINE 1039 INDICATION: Constipation COMPARISON: CT abdomen pelvis 08/23/2020 FINDINGS: Gallbladder has been removed. Bowel gas pattern is unremarkable without evidence of obstruc tion. Calcifications of the pelvis probably are vascular. Signer Name: Negro Khoury MD Signed: 12/12/2021 11:04 AM Workstation Name: [id number]
--- NOTE | 2021-12-12 11:32 | Emergency Department Report ---
ED Abdominal Pain HPI - General Chief Complaint: Abdominal Pain Stated Complaint: CONSTIPATION Source: patient, EMS Mode of arrival: Ambulatory Limitations: No Limitations - History of Present Illness Initial Comments: 41-year-old female presents to the ED complaining constipation and urine frequency x1 week. She states that she is currently taking methadone often caused her to be constipated. She states that she also has been having urinary frequency that causing her to go to the bathroom approximately 4-5 times within an hour. Patient has has history of alcohol abuse and drug abuse. She states that she drinks current six 6 to 12 pack a day. She states that she is cu rrently trying to stop drinking but is currently under a lot of stress. She states that she is not doing any opiates at present time. Patient is also complaining of nausea. She denies any vomiting at present time. Denies any fever .chills or chest pain at present time. Patient states that her abdominal pain is mainly when she is trying to have a bowel movement. Patient states that she is able to produce some bowel movement which she describes has latasha. Patient is alert and oriented x3. No acute distress noted. No ill appearance noted. MD Complaint: abdominal pain Onset/Timin -: week(s) Location: diffuse Radiation: none Severity scale (0 -10): 6 Quality: cramping Consistency: intermittent - Related Data Home Medications Medication Instructions Recorded Confirmed Last Taken Famotidine [Pepcid] 20 mg PO BID 01/02/18 01/02/18 01/02/18 05:00 20 Vit-Fe Fumar-FA [ 1 tab PO QDAY 01/02/18 01/02/18 01/02/18 05:00 Vitamin] 1 Simethicone [Bicarsim Forte] 125 mg PO PRN 01/02/18 01/02/18 01/02/18 05:00 125 Previous Rx's Medication Instructions Recorded Last Taken Type Ferrous Sulfate [Feosol 325 MG tab] 325 mg PO BID #60 tablet 01/03/18 Unknown Rx Vit-Fe Fumar-FA [ 1 each PO QDAY #30 tablet 01/03/18 Unknown Rx Vitamin] Erythromycin [Erythromycin Ophth 0.5 inch OP QID 7 Days #1 tube 11/17/18 Unknown Rx Oint] Albuterol Sulfate [Proventil Hfa] 2 puff INHALATION Q4HR PRN #1 01/17/19 Unknown Rx hfa.aer.ad Cyclobenzaprine [Flexeril] 10 mg PO QHS PRN #15 tablet 01/17/19 Unknown Rx Ibuprofen [Motrin 800 MG tab] 800 mg PO Q8H PRN #25 tablet 01/17/19 Unknown Rx Albuterol Sulfate [Proair 90 mcg IH Q6H PRN #1 aer.pow.ba 08/21/19 Unknown Rx Respiclick] Naproxen 500 mg PO Q12H PRN #10 tablet 08/21/19 Unknown Rx Ondansetron [Zofran ODT TAB] 8 mg PO Q8HR PRN #12 tab.rapdis 08/21/19 Unknown Rx Sulfamethoxazole/Trimethoprim 1 each PO BID 7 Days #14 tablet 08/21/19 Unknown Rx [Bactrim DS TAB] Ciprofloxacin HCl [Ciprofloxacin 500 mg PO BID 10 Days #20 tab 01/04/20 Unknown Rx TAB] Hyoscyamine Subl [Levsin Sl 0.125 0.125 mg SL Q6HR PRN #10 tab 01/04/20 Unknown Rx TAB] Promethazine [Phenergan] 25 mg PO Q8HR PRN #10 tab 01/04/20 Unknown Rx Famotidine [Pepcid] 20 mg PO BID #20 tablet 08/23/20 Unknown Rx Multivitamin with Folic Acid [Cvs 400 mcg PO DAILY #30 tablet 08/23/20 Unknown Rx One Daily Essential Tablet] Ondansetron [Zofran Odt] 4 mg PO Q8HR PRN #20 tab.rapdis 08/23/20 Unknown Rx chlordiazePOXIDE [Librium] 25 mg PO Q6H #40 capsule 08/23/20 Unknown Rx Dicyclomine [Bentyl] 20 mg PO QID 5 Days #20 tablet 12/12/21 Unknown Rx Ondansetron (Nf) [Zofran TAB] 8 mg PO Q8HR PRN 3 Days #12 tablet 12/12/21 Unknown Rx levoFLOXacin [Levaquin] 750 mg PO QDAY 7 Days #7 tablet 12/12/21 Unknown Rx Allergies Allergy/AdvReac Type Severity Reaction Status Date / Time No Known Allergies Allergy Verified 12/12/21 13:46 ED Review of Systems ROS: Stated complaint: CONSTIPATION Other details as noted in HPI Constitutional: denies: chills, fever Eyes: denies: eye pain, eye discharge, vision change ENT: denies: ear pain, throat pain Respiratory: denies: cough, shortness of breath, wheezing Cardiovascular: denies: chest pain, palpitations Endocrine: no symptoms reported Gastrointestinal: denies: abdominal pain, nausea, diarrhea Genitourinary: denies: urgency, dysuria, discharge Musculoskeletal: denies: back pain, joint swelling, arthralgia Skin: denies: rash, lesions Neurological: denies: headache, weakness, paresthesias Psychiatric: denies: anxiety, depression Hematological/Lymphatic: denies: easy bleeding, easy bruising ED Past Medical Hx - Past Medical History Previous Medical History?: Yes Hx Hypertension: No Hx Congestive Heart Failure: No Hx Diabetes: No Hx Deep Vein Thrombosis: No Hx Renal Disease: No Hx Sickle Cell Disease: No Hx Headaches / Migraines: Yes Hx Seizures: No Hx Asthma: Yes (uses inhaler) Hx COPD: No Hx HIV: No Additional medical history: DRUG ADDICTION 2 YEARS AGO. FIBROID, Pancreatitis - Surgical History Past Surgical History?: Yes Hx Cholecystectomy: Yes Hx Appendectomy: Yes Additional Surgical History: D&C. liver biopsy - Social History Smoking Status: Unknown if ever smoked Substance Use Type: Other - Medications Home Medications: Home Medications Medication Instructions Recorded Confirmed Last Taken Type Famotidine [Pepcid] 20 mg PO BID 01/02/18 01/02/18 01/02/18 05:00 History 20 Vit-Fe Fumar-FA [ 1 tab PO QDAY 01/02/18 01/02/18 01/02/18 05:00 History Vitamin] 1 Simethicone [Bicarsim Forte] 125 mg PO PRN 01/02/18 01/02/18 01/02/18 05:00 History 125 Ferrous Sulfate [Feosol 325 MG tab] 325 mg PO BID #60 tablet 01/03/18 Unknown Rx Vit-Fe Fumar-FA [ 1 each PO QDAY #30 tablet 01/03/18 Unknown Rx Vitamin] Erythromycin [Erythromycin Ophth 0.5 inch OP QID 7 Days #1 tube 11/17/18 Unknown Rx Oint] Albuterol Sulfate [Proventil Hfa] 2 puff INHALATION Q4HR PRN #1 01/17/19 Unknown Rx hfa.aer.ad Cyclobenzaprine [Flexeril] 10 mg PO QHS PRN #15 tablet 01/17/19 Unknown Rx Ibuprofen [Motrin 800 MG tab] 800 mg PO Q8H PRN #25 tablet 01/17/19 Unknown Rx Albuterol Sulfate [Proair 90 mcg IH Q6H PRN #1 aer.pow.ba 08/21/19 Unknown Rx Respiclick] Naproxen 500 mg PO Q12H PRN #10 tablet 08/21/19 Unknown Rx Ondansetron [Zofran ODT TAB] 8 mg PO Q8HR PRN #12 tab.rapdis 08/21/19 Unknown Rx Sulfamethoxazole/Trimethoprim 1 each PO BID 7 Days #14 tablet 08/21/19 Unknown Rx [Bactrim DS TAB] Ciprofloxacin HCl [Ciprofloxacin 500 mg PO BID 10 Days #20 tab 01/04/20 Unknown Rx TAB] Hyoscyamine Subl [Levsin Sl 0.125 0.125 mg SL Q6HR PRN #10 tab 01/04/20 Unknown Rx TAB] Promethazine [Phenergan] 25 mg PO Q8HR PRN #10 tab 01/04/20 Unknown Rx Famotidine [Pepcid] 20 mg PO BID #20 tablet 08/23/20 Unknown Rx Multivitamin with Folic Acid [Cvs 400 mcg PO DAILY #30 tablet 08/23/20 Unknown Rx One Daily Essential Tablet] Ondansetron [Zofran Odt] 4 mg PO Q8HR PRN #20 tab.rapdis 08/23/20 Unknown Rx chlordiazePOXIDE [Librium] 25 mg PO Q6H #40 capsule 08/23/20 Unknown Rx Dicyclomine [Bentyl] 20 mg PO QID 5 Days #20 tablet 12/12/21 Unknown Rx Ondansetron (Nf) [Zofran TAB] 8 mg PO Q8HR PRN 3 Days #12 tablet 12/12/21 Unknown Rx levoFLOXacin [Levaquin] 750 mg PO QDAY 7 Days #7 tablet 12/12/21 Unknown Rx ED Physical Exam - General Limitations: No Limitations General appearance: alert, in no apparent distress - Head Head exam: Present: atraumatic, normocephalic - Eye Eye exam: Present: normal appearance - ENT ENT exam: Present: mucous membranes moist - Neck Neck exam: Present: normal inspection - Respiratory Respiratory exam: Present: normal lung sounds bilaterally. Absent: respiratory distress - Cardiovascular Cardiovascular Exam: Present: regular rate, normal rhythm. Absent: systolic murmur, diastolic murmur, rubs, gallop - GI/Abdominal GI/Abdominal exam: Present: soft, normal bowel sounds - Extremities Exam Extremities exam: Present: normal inspection - Back Exam Back exam: Present: normal inspection - Neurological Exam Neurological exam: Present: alert, oriented X3 - Psychiatric Psychiatric exam: Present: normal affect, normal mood - Skin Skin exam: Present: warm, dry, intact, normal color. Absent: rash ED Course Vital Signs 12/12/21 12/12/21 12/12/21 08:16 10:09 10:19 Temperature 98.1 F 97.6 F 97.6 F Pulse Rate 97 H 81 81 Respiratory 20 16 16 Rate Blood Pressure 143/93 Blood Pressure 113/76 143/93 [Right] O2 Sat by Pulse 98 100 100 Oximetry 12/12/21 16:38 Temperature 97.9 F Pulse Rate 75 Respiratory 18 Rate Blood Pressure Blood Pressure 135/83 [Right] O2 Sat by Pulse 100 Oximetry ED Medical Decision Making - Lab Data Result diagrams: 12/12/21 08:56 12/12/21 08:56 - Radiology Data [facility] [address] [place] [address] XRay Report Signed Patient: CHIARA PATEL MR#: [id number] : 1980 Acct:[id number] Age/Sex: 41 / F ADM Date: 12/12/21 Loc: ED Attending Dr: Ordering Physician: DAPHNE BARRAGAN Date of Service: 12/12/21 Procedure(s): XR abdomen 1V ap Accession Number(s): [id number] cc: DAPHNE BARRAGAN Fluoro Time In Minutes: ABDOMEN AP SUPINE 1039 INDICATION: Constipation COMPARISON: CT abdomen pelvis 08/23/2020 FINDINGS: Gallbladder has been removed. Bowel gas pattern is unremarkable without evidence of obstruction. Calcifications of the pelvis probably are vascular. Signer Name: Negro Khoury MD Signed: 12/12/2021 11:04 AM Workstation Name: [id number] Transcribed By: GJ Dictated By: Negro Khoury MD Electronically Authenticated By: Negro Khoury MD Signed Date/Time: 12/12/21 1104 DD/ 1103 TD/TT: [facility] [address] [place] [id number] Cat Scan Report Signed Patient: CHIARA PATEL MR#: [id number] : 1980 Acct:[id number] Age/Sex: 41 / F ADM Date: 12/12/21 Loc: ED Attending Dr: Ordering Physician: DAPHNE BARRAGAN Date of Service: 12/12/21 Procedure(s): CT abdomen pelvis w con Accession Number(s): [id number] cc: DAPHNE BARRAGAN CT ABDOMEN AND PELVIS WITH CONTRAST INDICATION / CLINICAL INFORMATION: abd pain. TECHNIQUE: Axial CT images were obtained through the abdomen and pelvis after 100 cc of Omnipaque [address] scans at this location are performed using CT dose reduction for ALARA by means of automated exposure control. COMPARISON: 08/23/2020 FINDINGS: LOWER CHEST: No significant abnormality. LIVER: There is fatty infiltration of the liver. GALLBLADDER: Cholecystectomy. BILE DUCTS: There is dilatation of the common bile duct which appears similar to the prior study PANCREAS: There are calcifications noted in the pancreas which are new possibly representing chronic pancreatitis. There is mild dilatation of the pancreatic duct. SPLEEN: No significant abnormality. ADRENALS: No significant abnormality. RIGHT KIDNEY / URETER: No significant abnormality. LEFT KIDNEY / URETER: There is a low density lesion which is somewhat wedge- shaped in the mid left kidney measuring approximately 2 cm. This was not present previously. There are 2 additional new areas of decreased attenuation in the lower pole of the left kidney which were not present previously. All of these have a relatively subtle appearance. STOMACH / SMALL BOWEL: No significant abnormality. COLON: No significant abnormality. APPENDIX: Appendectomy. PERITONEUM: No free fluid. No free air. No fluid collection. LYMPH NODES: No significant adenopathy. AORTA / ARTERIES: No significant abnormality. IVC / VEINS: No significant abnormality. URINARY BLADDER: No significant abnormality. REPRODUCTIVE ORGANS: No significant abnormality. ADDITIONAL FINDINGS: None. SKELETAL SYSTEM: No significant abnormality. IMPRESSION: 1. There are subtle low density lesions in the left kidney which were not present previously. The appearance is suspicious for pyelonephritis though the possibility of developing mass lesion is included in the differential. Clinical correlation is recommended. Follow-up should BE obtained as clinically warranted. 2. There are new calcifications in the pancreas characteristic of chronic pancreatitis. 3. There is fatty infiltration of the liver. Signer Name: Arya Justice MD Signed: 12/12/2021 1:35 PM Workstation Name: [id number] Transcribed By: Dictated By: Arya Justice MD Electronically Authenticated By: Arya Justice MD Signed Date/Time: 12/12/211334 DD/ 29 TD/TT: Print Cancel - Medical Decision Making 41-year-old female presents to the ED complaining constipation and urine frequency x1 week. She states that she is currently taking methadone often caused her to be constipated. She states that she also has been having urinary frequency that causing her to go to the bathroom approximately 4-5 times within an hour. Patient has has history of alcohol abuse and drug abuse. She states that she drinks current six 6 to 12 pack a day. She states that she is currently trying to stop drinking but is currently under a lot of stress. She states that she is not doing any opiates at present time. Patient is also complaining of nausea. She denies any vomiting at present time. Denies any fever .chills or chest pain at present time. Patient states that her abdominal pain is mainly when she is trying to have a bowel movement. Patient states that she is able to produce some bowel movement which she describes has latasha. Patient is alert and oriented x3. No acute distress noted. No ill appearance noted. Physical examination is unremarkable. Patient is drinking water. Walking around the ED talking on cellular phone. Patient states that her last alcohol beverage was prior to coming to the ED he was sipping on a can of alcohol. He disclosed this information after lab results was back. Patient was given 2 L normal saline and 10 units of Humulin insulin. Patient is aware of her hyperglycemia due to her prolonged use of methadone. Patient has chronic pancreatitis patient given information about substance abuse. Patient has no withdrawal symptoms at present time. Patient given also Zofran 8 mg total in ed. patient had no vomiting noted during ED course. Patient refused Rocephin 1 g IV but accepted rest Rocephin 1 g IM due to she was ready to go home. Patient will be treated for pyelonephritis . Rechecked the patient is resting quietly quietly and comfortable and feeling better. I discussed the results of diagnostic study, my clinical impression and the plan for further treatment with the patient. Patient agrees with plan and discharge at this present time. All question addressed. I have given the patient instruction regarding a diagnosis ,expectation ,follow- up and return precaution. I explained to the patient that emergent condition may arise and to return to the ED for new worsen and any new persisting condition. I have explained the importance of following up with the primary care physician or referral physician listed below has instructed. The patient verbalized understanding of discharge instruction. Abnormal Lab Results 12/12/21 12/12/21 12/12/21 08:56 08:56 11:36 WBC 10.0 RBC 4.65 Hgb 14.5 H Hct 45.0 H MCV 97 MCH 31 MCHC 32 RDW 15.3 H Plt Count 195 Lymph % (Auto) 16.1 [place] % (Auto) 7.5 H Eos % (Auto) 0.2 Baso % (Auto) 0.8 Lymph # (Auto) 1.6 [place] # (Auto) 0.7 Eos # (Auto) 0.0 Baso # (Auto) 0.1 Seg Neutrophils % 75.4 H Seg Neutrophils # 7.5 VBG pH Sodium 129 L Potassium 4.8 Chloride 90.6 L Carbon Dioxide 19 L Anion Gap 24 BUN 5 L Creatinine 0.6 Estimated GFR > 60 BUN/Creatinine Ratio 8 Glucose 404 H POC Glucose Calcium 9.2 Total Bilirubin 0.60 AST 43 H ALT 41 Alkaline Phosphatase 161 H Total Protein 8.3 H Albumin 3.9 Albumin/Globulin Ratio 0.9 Lipase 272 H Urine Color Urine Turbidity Urine pH Ur Specific [place] Urine Protein Urine Glucose (UA) Urine Ketones Urine Blood Urine Nitrite Urine Bilirubin Urine Urobilinogen Ur Leukocyte Esterase Urine WBC (Auto) Urine RBC (Auto) U Epithel Cells (Auto) Urine HCG, Qual Negative 12/12/21 12/12/21 12/12/21 13:56 14:15 15:53 WBC RBC Hgb Hct MCV MCH MCHC RDW Plt Count Lymph % (Auto) [place] % (Auto) Eos % (Auto) Baso % (Auto) Lymph # (Auto) [place] # (Auto) Eos # (Auto) Baso # (Auto) Seg Neutrophils % Seg Neutrophils # VBG pH 7.297 L Sodium Potassium Chloride Carbon Dioxide Anion Gap BUN Creatinine Estimated GFR BUN/Creatinine Ratio Glucose POC Glucose 415 H 163 H Calcium Total Bilirubin AST ALT Alkaline Phosphatase Total Protein Albumin Albumin/Globulin Ratio Lipase Urine Color Urine Turbidity Urine pH Ur Specific [place] Urine Protein Urine Glucose (UA) Urine Ketones Urine Blood Urine Nitrite Urine Bilirubin Urine Urobilinogen Ur Leukocyte Esterase Urine WBC (Auto) Urine RBC (Auto) U Epithel Cells (Auto) Urine HCG, Qual 12/12/21 Unknown WBC RBC Hgb Hct MCV MCH MCHC RDW Plt Count Lymph % (Auto) [place] % (Auto) Eos % (Auto) Baso % (Auto) Lymph # (Auto) [place] # (Auto) Eos # (Auto) Baso # (Auto) Seg Neutrophils % Seg Neutrophils # VBG pH Sodium Potassium Chloride Carbon Dioxide Anion Gap BUN Creatinine Estimated GFR BUN/Creatinine Ratio Glucose POC Glucose Calcium Total Bilirubin AST ALT Alkaline Phosphatase Total Protein Albumin Albumin/Globulin Ratio Lipase Urine Color Yellow Urine Turbidity Clear Urine pH 5.0 Ur Specific [place] 1.026 Urine Protein 30 mg/dl Urine Glucose (UA) >=500 Urine Ketones 80 Urine Blood Neg Urine Nitrite Neg Urine Bilirubin Neg Urine Urobilinogen < 2.0 Ur Leukocyte Esterase Tr Urine WBC (Auto) 39.0 H Urine RBC (Auto) 4.0 U Epithel Cells (Auto) 2.0 Urine HCG, Qual Critical care attestation.: If time is entered above; I have spent that time in minutes in the direct care of this critically ill patient, excluding procedure time. ED Disposition Clinical Impression: Pyelonephritis Chronic pancreatitis Qualifiers: Pancreatitis type: alcohol induced Qualified Code(s): K86.0 - Alcohol-induced chronic pancreatitis Disposition: 01 HOME / SELF CARE / HOMELESS Is pt being admited?: No Does the pt Need Aspirin: No Condition: Stable Instructions: Pyelonephritis, Adult, Alsy-dr-Oksa, Chronic Pancreatitis, Abdominal Pain (ED) Additional Instructions: Continue to take methadone methadone Follow-up with primary care doctor due to hyperglycemic Return to the ED for any worsening symptom SUBSTANCE ABUSE PROGRAMS: [facility]: Location: [place], [place] [employer] [employer] Address: [address] [place] [address] [facility]: Address: [address] [place] [id number] [facility]: Address: [address] [place] [address] Prescriptions: Dicyclomine [Bentyl] 20 mg PO QID 5 Days #20 tablet levoFLOXacin [Levaquin] 750 mg PO QDAY 7 Days #7 tablet Ondansetron (Nf) [Zofran TAB] 8 mg PO Q8HR PRN 3 Days #12 tablet PRN Reason: Nausea Referrals: ELLIE FELICIANO MD [Primary Care Provider] - 3-5 Days [facility] [Outside] - 3-5 Days Forms: Work/School Release Form(ED) Time of Disposition: 16:29
[2021-12-12 11:48] LABS: HCG Qualitative,Urine Negative (Negative)
--- NOTE | 2021-12-12 13:39 | Cat Scan Report ---
CT ABDOMEN AND PELVIS WITH CONTRAST INDICATION / CLINICAL INFORMATION: abd pain. TECHNIQUE: Axial CT images were obtained through the abdomen and pelvis after 100 cc of Omnipaque [address] scans at this location are performed using CT dose reduction for ALARA by means of automated exposure control. COMPARISON: 08/23/2020 FINDINGS: LOWER CHEST: No significant abnormality. LIVER: There is fatty infiltration of the liver. GALLBLADDER: Cholecystectomy. BILE DUCTS: There is dilatation of the common bile duct which appears similar to the prior study PANCREAS: There are calcifications noted in the pancreas which are new possibly representing chronic pancreatitis. There is mild dilatation of the pancreatic duct. SPLEEN: No significant abnormality. ADRENALS: No significant abnormality. RIGHT KIDNEY / URETER: No significant abnormality. LEFT KIDNEY / URETER: There is a low density lesion which is somewhat wedge-shaped in the mid left ki dney measuring approximately 2 cm. This was not present previously. There are 2 additional new areas of decreased attenuation in the lower pole of the left kidney which were not present previously. All of these have a relatively subtle appearance. STOMACH / SMALL BOWEL: No significant abnormality. COLON: No significant abnormality. APPENDIX: Appendectomy. PERITONEUM: No free fluid. No free air. No fluid collection. LYMPH NODES: No significant adenopathy. AORTA / ARTERIES: No significant abnormality. IVC / VEINS: No significant abnormality. URINARY BLADDER: No significant abnormality. REPRODUCTIVE ORGANS: No significant abnormality. ADDITIONAL FINDINGS: None. SKELETAL SYSTEM: No significant abnormality. IMPRESSION: 1. There are subtle low density lesions in the left kidney which were not present previously. The ashwini earance is suspicious for pyelonephritis though the possibility of developing mass lesion is included in the differential. Clinical correlation is recommended. Follow-up should BE obtained as clinically warranted. 2. There are new calcifications in the pancreas characteristic of chronic pancreatitis. 3. There is fatty infiltration of the liver. Signer Name: Arya Justice MD Signed: 12/12/2021 1:35 PM Workstation Name: [id number]
[2021-12-12] MEDS ORDERED: INSULIN REGULAR, HUMAN 100 UNITS/1 ML IV ONE (14:02)
[2021-12-12] MEDS ORDERED: cefTRIAXone/NS 1 GM/50 ML 1 GM/50 ML BAG IV ONE (16:07)
[2021-12-12] MEDS ORDERED: DICYCLOMINE 20 MG TAB PO ONE (16:08)
[2021-12-12] MEDS ORDERED: LIDOCAINE-MPF (1%) 10 MG/1 ML VIAL 5 ML INFILTRATI ONE (16:14)
[2021-12-12 16:40] VITALS: BP 135/83
== END 2021-12-12 16:38 | disposition home or self-care (01) ==
LOC: ED 01:57
DX: N12 Tubulo-interstitial nephritis, not specified as acute or chronic (principal); K86.1 Other chronic pancreatitis; G43.909 Migraine, unspecified, not intractable, without status migrainosus; J45.909 Unspecified asthma, uncomplicated; Z90.49 Acquired absence of other specified parts of digestive tract; Z79.899 Other long term (current) drug therapy
CPT/HCPCS: 36415; 74018; 74177; 80053; 81001; 81025; 82805; 82962; 83690; 85025; 87086; 96361; 96372; 96374; 96375; 96376; 99285; J0696; J1885; J2405; J3490; J7030; Q9967; J1815